=== PATIENT | male | born 1950 | race Caucasian/White ===

== ENCOUNTER 2017-08-18 18:40 | Inpatient (IN) ==
--- NOTE | 2017-08-18 19:05 | ED ---
HPI General Chief complaint: Syncope Stated complaint: Near Syncope/Evac Time Seen by Provider: 08/18/17 19:05 Related Data Home Medications Medication Instructions Recorded Confirmed amiodarone 100 mg PO MOWEFR 08/12/17 08/12/17 amiodarone 200 mg PO QTUTHSASU 08/12/17 08/12/17 atorvastatin 10 mg PO HS 08/12/17 08/12/17 carisoprodol 350 mg PO BID PRN 08/12/17 08/12/17 cholecalciferol (vitamin D3) 1,000 unit PO DAILY 08/12/17 08/12/17 [Vitamin D3] glipizide 10 mg PO HS 08/12/17 08/12/17 linagliptin [Tradjenta] 5 mg PO HS 08/12/17 08/12/17 metformin 1,000 mg PO BID 08/12/17 08/12/17 metoprolol succinate 25 mg PO DAILY 08/12/17 08/12/17 oxycodone-acetaminophen 1 tab PO TID PRN 08/12/17 08/12/17 vitamin B complex [B 1 tab PO DAILY 08/12/17 08/12/17 Complex-Vitamin B12] warfarin 2.5 mg PO DIRECTED 08/12/17 08/12/17 warfarin 5 mg PO WE 08/12/17 08/12/17 Allergies Allergy/AdvReac Type Severity Reaction Status Date / Time meperidine [From Demerol] Allergy Severe Nausea Verified 08/12/17 10:42 Sulfa (Sulfonamide Allergy Severe Nausea Verified 08/12/17 10:42 Antibiotics) PMFSH Social History Social History Recent Travel in [facility] within the Last 8 Weeks: No Recent Out of Country Travel within the Last 8 Weeks: No Course Initial Documented Vital Signs Pulse Rate 66 08/18/17 18:59 Respiratory Rate 18 08/18/17 18:59 Blood Pressure 148/74 H 08/18/17 18:59 Pulse Oximetry 96 08/18/17 18:59 Last Documented Vital Signs Pulse Rate 66 08/18/17 18:59 Respiratory Rate 18 08/18/17 18:59 Blood Pressure 148/74 H 08/18/17 18:59 Pulse Oximetry 96 08/18/17 18:59 Discharge Plan Physicians Team ED Provider: Taye Milton Rxs /Orders / Referrals /Forms Prescriptions: No Action carisoprodol 350 mg Tablet 350 mg PO BID PRN (Reason: Pain) RF: 0 atorvastatin 10 mg Tablet 10 mg PO HS RF: 0 amiodarone 200 mg Tablet 200 mg PO QTUTHSASU RF: 0 glipizide 10 mg Tablet 10 mg PO HS RF: 0 warfarin 2.5 mg Tablet 2.5 mg PO DIRECTED RF: 0 metformin 1,000 mg Tablet 1,000 mg PO BID RF: 0 warfarin 5 mg Tablet 5 mg PO WE RF: 0 vitamin B complex [B Complex-Vitamin B12] Tablet 1 tab PO DAILY RF: 0 metoprolol succinate 25 mg Tablet Extended Release 24 Hr 25 mg PO DAILY RF: 0 amiodarone 100 mg Tablet 100 mg PO MOWEFR RF: 0 cholecalciferol (vitamin D3) [Vitamin D3] 1,000 unit Tablet 1,000 unit PO DAILY RF: 0 linagliptin [Tradjenta] 5 mg Tablet 5 mg PO HS RF: 0 oxycodone-acetaminophen 10-325 mg Tablet 1 tab PO TID PRN (Reason: Pain) RF: 0 Status ED Status: With Doctor
--- NOTE | 2017-08-18 19:13 | ED ---
HPI General Chief complaint: Syncope Stated complaint: Near Syncope/Evac Time Seen by Provider: 08/18/17 19:05 History of Present Illness HPI narrative: Patient 67-year-old male presents emergency department after the syncopal episode, the patient states he took some Dulcolax suppositories and then started drinking his GoLYTELY at about noon today, his last bowel movement was after the Dulcolax and was fairly firm. He was sitting on the toilet not straining when suddenly he felt like he was going to pass out very diaphoretic, his in a panic called next-door neighbor who could not palpate a radial pulse on him despite him still talking, the 2 ladies then lowered the patient to the ground when they called paramedics they showed up and found him to be very hypotensive on scene. No chest pain no shortness of breath, no nausea no vomiting. The patient is prepping for colon surgery currently has a mass in his ascending colon. Related Data Home Medications Medication Instructions Recorded Confirmed amiodarone 100 mg PO MOWEFR 08/12/17 08/19/17 amiodarone 200 mg PO QTUTHSASU 08/12/17 08/19/17 atorvastatin 40 mg PO HS 08/12/17 08/19/17 cholecalciferol (vitamin D3) 1,000 unit PO DAILY 08/12/17 08/19/17 [Vitamin D3] glipizide 10 mg PO HS 08/12/17 08/19/17 linagliptin [Tradjenta] 5 mg PO HS 08/12/17 08/19/17 metformin 1,000 mg PO BID 08/12/17 08/19/17 metoprolol succinate 25 mg PO DAILY 08/12/17 08/19/17 oxycodone-acetaminophen 1 tab PO TID PRN 08/12/17 08/19/17 vitamin B complex [B 1 tab PO DAILY 08/12/17 08/19/17 Complex-Vitamin B12] warfarin 2.5 mg PO DIRECTED 08/12/17 08/19/17 warfarin 5 mg PO WE 08/12/17 08/19/17 Allergies Allergy/AdvReac Type Severity Reaction Status Date / Time meperidine [From Demerol] Allergy Severe Nausea Verified 08/12/17 10:42 Sulfa (Sulfonamide Allergy Severe Nausea Verified 08/12/17 10:42 Antibiotics) Review of Systems Except as stated in HPI: all other systems reviewed are negative PMFSH Social History Social History Substance History: No History of Abuse Second Hand Smoke Exposure: No Smoking Status: Never smoker How Often Do You Have a Drink Containing Alcohol: Never Recent Travel in [facility] within the Last 8 Weeks: No Recent Out of Country Travel within the Last 8 Weeks: No Exam Narrative Exam Narrative: GENERAL: Well-developed well-nourished, no obvious distress SKIN: Focused skin assessment warm/dry. HEAD: Atraumatic. Normocephalic. EYES: Pupils equal and round. No scleral icterus. No injection or drainage. ENT: No nasal bleeding or discharge. Mucous membranes pink and moist. NECK: Trachea midline. No JVD. CARDIOVASCULAR: Regular rate and rhythm. No murmur appreciated. 2+ bilateral pulses in all 4 extreme RESPIRATORY: No accessory muscle use. Clear to auscultation. Breath sounds equal bilaterally. GASTROINTESTINAL: Abdomen soft, non-tender, nondistended. Hepatic and splenic margins not palpable. MUSCULOSKELETAL: No obvious deformities. No clubbing. No cyanosis. No edema. NEUROLOGICAL: Awake and alert. Cranial nerves II through XII are grossly intact and nonfocal, 5 out of 5 strength in all 4 extremities, normal speech. PSYCHIATRIC: Appropriate mood and affect; insight and judgment normal. Course Hospital Course: Shortly after arrival the patient had an additional episode, he was sitting in a stretcher and had fairly sudden onset right lower quadrant abdominal pain, blood pressure dropped to 80/60 systolic, he was placed in Trendelenburg, normal saline was started. He appears very uncomfortable pale cool and diaphoretic currently. Illness and diaphoresis lasted for about 5 minutes, his blood pressure quickly returned to 140 systolic. He was given morphine and Phenergan as he had a bout of 300 cc of clear emesis output. Chief concerns are for obstruction and perforation, less likely is that the patient is having an aortic dissection or rupture. Will be taken emergently to the CAT scan, had creatinine a few days ago which was 1.03. Initial Documented Vital Signs Pulse Rate 66 08/18/17 18:59 Respiratory Rate 18 08/18/17 18:59 Blood Pressure 148/74 H 08/18/17 18:59 Pulse Oximetry 96 08/18/17 18:59 Last Documented Vital Signs Temperature 98.9 F 08/18/17 23:34 Pulse Rate 87 07/11/18 23:34 Respiratory Rate 18 08/18/17 23:34 Blood Pressure 168/79 H 08/18/17 23:34 Pulse Oximetry 98 08/18/17 20:21 Critical Care Time Critical Care Time: Yes Total Critical Care Time: 35 Attestation: Aggregate critical care time was 35 minutes. Time to perform other separately billable procedures was not included in the critical care time. My time did not include minutes spent treating any other patients simultaneously or on activities that did not directly contribute to the patient's treatment. The services I provided to this patient were to treat and/or prevent clinically significant deterioration that could result in: , disability, organ failure I provided critical care services requiring my management, as noted below: Chart data review, documentation time, medication orders and management, vital sign assessments/reviewing monitor data, ordering and reviewing lab tests, ordering and interpreting/reviewing x-rays and diagnostic studies, care of the patient and discussion of the patient with the admitting physicians. Medical Decision Making MDM Narrative Medical decision making narrative: Patient room to the emergency department as above did have a near syncopal episode and transient hypotension, was given a liter of fluids, morphine, Phenergan NG tube was inserted after he had large volume clear emesis. He is improved significantly here, is taken to CAT scan which does show concerns for large bowel obstruction, fair amount of stool in the descending colon, my concern remains for large bowel obstruction he still has not had a bowel movement since starting his prep today. Patient was discussed with Dr. Burgos who is on-call for Dr. Bassett, he would like to have an additional liter of fluid 2 L bolus and then started 100 cc/h, potassium repleted as well. Patient ultimately discussed with Dr. Conroy for admission and she is agreeable. We will place in the [facility] given the transient hypotension. Differential Diagnosis Differential Diagnosis: Vasovagal syncope, cardiogenic syncope, dehydration, electrolyte abnormality, GI bleeding, obstruction, aortic rupture, bowel rupture. Lab Data Result diagrams: 08/18/17 19:45 08/18/17 19:45 Lab Results 08/18/17 08/18/17 08/18/17 Range/Units 02:13 19:45 19:45 WBC 18.4 H (4.0-11.0) th/mm3 RBC 4.64 (4.50-5.90) mil/mm3 Hgb 14.2 (13.0-17.0) gm/dL Hct 40.9 (39.0-51.0) % MCV 88.2 (80.0-100.0) fL MCH 30.6 (27.0-34.0) pg MCHC 34.7 (32.0-36.0) % RDW 14.1 (11.6-17.2) % Plt Count 160 (150-450) th/mm3 MPV 8.7 (7.0-11.0) fL Neut % (Auto) 86.2 H (16.0-70.0) % Lymph % (Auto) 8.8 L (9.0-44.0) % [place] % (Auto) 4.6 (0.0-8.0) % Eos % (Auto) 0.1 (0.0-4.0) % Baso % (Auto) 0.3 (0.0-2.0) % Neut # (Auto) 15.8 H (1.8-7.7) th/mm3 Lymph # (Auto) 1.6 (1.0-4.8) th/mm3 [place] # (Auto) 0.9 (0.0-0.9) th/mm3 Eos # (Auto) 0.0 (0.0-0.4) th/mm3 Baso # (Auto) 0.1 (0.0-0.2) th/mm3 WBC Differential . Differential Comment Auto diff final Sodium 141 (136-145) meq/L Potassium 3.2 L (3.5-5.1) meq/L Chloride 104 (98-107) meq/L Carbon Dioxide 21.6 (21.0-32.0) meq/L Anion Gap 15 (5-15) meq/L BUN 16 (7-18) mg/dL Creatinine 1.21 (0.60-1.30) mg/dL Estimated GFR 59 L (>89) mL/min POC Glucose (68-110) mg/dl Random Glucose 203 H (74-106) mg/dL Calcium 9.3 (8.5-10.1) mg/dL Total Bilirubin 1.2 H (0.2-1.0) mg/dL AST 15 (15-37) U/L ALT 17 (12-78) U/L Alkaline Phosphatase 53 (45-117) U/L Troponin I Less than 0.02 L (0.02-0.05) ng/mL Total Protein 7.0 (6.4-8.2) g/dL Albumin 3.9 (3.4-5.0) g/dL Urine Color Yellow (Yellw/Straw) Urine Clarity Clear (Clear) Urine pH 5.0 (5.0-8.5) Ur Specific [place] 1.040 H (1.002-1.035) Urine Protein Negative (Neg-Trace) mg/dL Urine Glucose (UA) 50 (Negative) mg/dL Urine Ketones 20 (Negative) mg/dL Urine Occult Blood Negative (Negative) Urine Nitrate Negative (Negative) Urine Bilirubin Negative (Negative) Urine Urobilinogen Less than 2 (Less than 2) mg/dL Ur Leukocyte Esterase Negative (Negative) Urine WBC 1 (0-5) /hpf Urine Mucus Few H (Occasional) /lpf 08/18/17 Range/Units 23:31 WBC (4.0-11.0) th/mm3 RBC (4.50-5.90) mil/mm3 Hgb (13.0-17.0) gm/dL Hct (39.0-51.0) % MCV (80.0-100.0) fL MCH (27.0-34.0) pg MCHC (32.0-36.0) % RDW (11.6-17.2) % Plt Count (150-450) th/mm3 MPV (7.0-11.0) fL Neut % (Auto) (16.0-70.0) % Lymph % (Auto) (9.0-44.0) % [place] % (Auto) (0.0-8.0) % Eos % (Auto) (0.0-4.0) % Baso % (Auto) (0.0-2.0) % Neut # (Auto) (1.8-7.7) th/mm3 Lymph # (Auto) (1.0-4.8) th/mm3 [place] # (Auto) (0.0-0.9) th/mm3 Eos # (Auto) (0.0-0.4) th/mm3 Baso # (Auto) (0.0-0.2) th/mm3 WBC Differential Differential Comment Sodium (136-145) meq/L Potassium (3.5-5.1) meq/L Chloride (98-107) meq/L Carbon Dioxide (21.0-32.0) meq/L Anion Gap (5-15) meq/L BUN (7-18) mg/dL Creatinine (0.60-1.30) mg/dL Estimated GFR (>89) mL/min POC Glucose 212 H (68-110) mg/dl Random Glucose (74-106) mg/dL Calcium (8.5-10.1) mg/dL Total Bilirubin (0.2-1.0) mg/dL AST (15-37) U/L ALT (12-78) U/L Alkaline Phosphatase (45-117) U/L Troponin I (0.02-0.05) ng/mL Total Protein (6.4-8.2) g/dL Albumin (3.4-5.0) g/dL Urine Color (Yellw/Straw) Urine Clarity (Clear) Urine pH (5.0-8.5) Ur Specific [place] (1.002-1.035) Urine Protein (Neg-Trace) mg/dL Urine Glucose (UA) (Negative) mg/dL Urine Ketones (Negative) mg/dL Urine Occult Blood (Negative) Urine Nitrate (Negative) Urine Bilirubin (Negative) Urine Urobilinogen (Less than 2) mg/dL Ur Leukocyte Esterase (Negative) Urine WBC (0-5) /hpf Urine Mucus (Occasional) /lpf Imaging Data Radiologist's impression: ITS Impressions Thoracic Aorta CT 08/18/17 19:48 CONCLUSION: 1. Atherosclerotic dilatation seen throughout the arterial system. No aneurysm is seen. No dissection is seen. There are prominent calcifications of the coronary arteries. 2. Prominent fat extending to the right inguinal canal consistent with a hernia without bowel in this region. 3. Degenerative and postoperative change in the lumbar spine. Discharge Plan Discharge Disposition Patient Disposition: 30 Still Patient Discharge Details Diagnosis: Near syncope, Bowel obstruction, Increased nausea and vomiting, Acute hypotension Physicians Team ED Provider: Kulwinder Urena Primary Care Provider: Rian Alex Attending Provider: Cherrie Crawford Discharge Interventions Interventions: Vital Signs Last Done: 08/18/17 19:44 Status ED Status: Admitted Observation Patient
[2017-08-18] MEDS ORDERED: Morphine Inj 4 MG, Morphine Inj 2 MG IV.PUSH ONE ×2 (19:49)
[2017-08-18 20:21] LABS: Baso # (Auto) 0.1 th/mm3 (0.0-0.2); Baso % (Auto) 0.3 % (0.0-2.0); Eos % (Auto) 0.1 % (0.0-4.0); Hematocrit 40.9 % (39.0-51.0); Hemoglobin 14.2 gm/dL (13.0-17.0); Lymph # (Auto) 1.6 th/mm3 (1.0-4.8); Lymph % (Auto) 8.8 % (9.0-44.0); Mean Corpuscular HGB Conc 34.7 % (32.0-36.0); Mean Corpuscular Hemoglobin 30.6 pg (27.0-34.0); Mean Corpuscular Volume 88.2 fL (80.0-100.0); Mean Platelet Volume 8.7 fL (7.0-11.0); Mono # (Auto) 0.9 th/mm3 (0.0-0.9); Mono % (Auto) 4.6 % (0.0-8.0); Neut # (Auto) 15.8 th/mm3 (1.8-7.7); Neut % (Auto) 86.2 % (16.0-70.0); Platelet Count 160 th/mm3 (150-450); Red Blood Count 4.64 mil/mm3 (4.50-5.90); Red Cell Distribution Width 14.1 % (11.6-17.2); White Blood Count 18.4 th/mm3 (4.0-11.0)
[2017-08-18 20:37] LABS: Albumin 3.9 g/dL (3.4-5.0); Anion Gap 15 meq/L (5-15); Aspartate Aminotransferase 15 U/L (15-37); Blood Urea Nitrogen 16 mg/dL (7-18); Calcium 9.3 mg/dL (8.5-10.1); Carbon Dioxide 21.6 meq/L (21.0-32.0); Chloride 104 meq/L (98-107); Glomerular Filtration Rate 59 mL/min (>89); Glucose,Random 203 mg/dL (74-106); Potassium 3.2 meq/L (3.5-5.1); Sodium 141 meq/L (136-145)
[2017-08-18 20:38] LABS: Alanine Aminotransferase 17 U/L (12-78)
[2017-08-18 20:42] LABS: Alkaline Phosphatase 53 U/L (45-117)
--- NOTE | 2017-08-18 21:08 | CT ---
EXAM DATE: 08/18/2017 8:27 PM EDT AGE/SEX: 67 years / Male INDICATIONS: Diaphoretic pain CLINICAL DATA: This is the patient's initial encounter. Patient reports that signs and symptoms have been present for 1 day and indicates a pain score of 7/10. MEDICAL/SURGICAL HISTORY: Renal calculi. Hypertension. Cardiovascular disease. . Hernia repair ba ck surgery RADIATION DOSE: 9.91 CTDI (mGy) COMPARISON: No prior exams available for comparison. TECHNIQUE: Volumetric scanning was performed using a multi-row detector CT scanner during bolus infu damaso of 94 ml Omnipaque 350 (iohexol) nonionic water-soluble contrast as a single exam dose. The da ta was post processed with a variety of visualization algorithms including full volume maximum intens ity projection, multi-planar sliding thin slab reformation, curved planar reformation, and surface re ndering techniques. Using automated exposure control and adjustment of the mA and/or kV according to patient size, radiation dose was kept as low as reasonably achievable to obtain optimal diagnostic q uality images. DICOM format image data is available electronically for review and comparison. FINDINGS: Lungs: There is no consolidation or pneumothorax. No concerning pulmonary nodule is visualized. No pleural fluid is present. Mediastinum: No abnormally enlarged lymph nodes by CT criteria. No axillary or hilar abnormalities a re identified. There are prominent coronary artery calcifications. Abdomen: The liver and spleen are free of focal defects. The gallbladder and pancreas demonstrate no abnormality. The adrenal glands are normal. The kidneys demonstrate no evidence of solid renal mass or hydronephrosis. There is an NG tube in place. There is a prominent amount stool seen in the colon particularly in the sigmoid region. No free fluid or abdominal masses are identified. No para-aortic adenopathy is seen. There is degenerative and postoperative change in the lumbar spine. Pelvis: No evidence of free fluid or pelvic mass. No abnormally enlarged inguinal or retroperitoneal lymph nodes are present. The bladder is unremarkable. There is prominent fat extending into the righ t inguinal canal. Thoracic Aorta: The thoracic aortic root is normal with normal branching of the great vessels. Ther e is no evidence of aneurysm or dissection. Atherosclerotic calcifications are seen throughout the ar terial system. Coronary artery calcifications are seen. Abdominal Aorta: The aorta is normal in caliber without aneurysm or dissection. The renal arteries are patent bilaterally. The proximal celiac and superior mesenteric arteries are patent and normal i n diameter. Pelvic Vessels: The internal iliac and external iliac vessels are patent without aneurysm or stenosi s. CONCLUSION: 1. Atherosclerotic dilatation seen throughout the arterial system. No aneurysm is seen. No dissectio n is seen. There are prominent calcifications of the coronary arteries. 2. Prominent fat extending to the right inguinal canal consistent with a hernia without bowel in thi s region. 3. Degenerative and postoperative change in the lumbar spine. Electronically signed by: Carlos Lobato MD 08/18/2017 9:07 PM EDT
[2017-08-18] MEDS ORDERED: Sod Chloride 0.9% Inj 1,000 ML IV.SIG ONE (21:18)
[2017-08-18] MEDS: Potassium Chlor 20 mEq Premix 20 MEQ/100 ML PIGGYBACK IV.SIG SCH (22:49)
[2017-08-18] MEDS ORDERED: Morphine Inj 4 MG/ML Vial IV.PUSH PRN (22:52)
[2017-08-18] MEDS ORDERED: Temazepam 15 MG Capsule PO PRN (22:53)
[2017-08-18] MEDS ORDERED: Bisacodyl 10 MG Supp RECTAL PRN (22:53)
[2017-08-18] MEDS ORDERED: Dextrose 50% in Water 50 ML Vial IV.PUSH PRN (22:55)
[2017-08-18 23:01] LABS: Bilirubin,Urine Negative (Negative); Clarity,Urine Clear (Clear); Color,Urine Yellow (Yellw/Straw); Glucose,Urine (UA) 50 mg/dL (Negative); Leukocyte Esterase,Urine Negative (Negative); Mucus,Urine Few /lpf (Occasional); Nitrite,Urine Negative (Negative)
[2017-08-18] MEDS: Sodium Chloride 23.4% Inj 188 MEQ in Sod Chloride 0.9% Inj 1,000 ML IV.CONT SCH (23:22)
[2017-08-19] MEDS: Potassium Chlor 20 mEq Premix 20 MEQ/100 ML PIGGYBACK IV.SIG SCH ×2 (00:04→14:16)
[2017-08-19] MEDS: Sod Chloride 0.9% Inj 1,000 ML IV.CONT SCH (00:05)
--- NOTE | 2017-08-19 04:00 | P.HP ---
History of Present Illness Service: [facility] Primary Care Physician: Rian Alex MD Chief Complaint: Nausea/vomiting History of Present Illness: 67-year-old male with a past medical history significant for hypertension, hyperlipidemia and diabetes mellitus presents to the emergency department for the evaluation and abdominal distention/pain. The patient was prepping for colorectal surgery tomorrow and had taken Dulcolax suppositories and GoLYTELY. He reports being on the toilet when he suddenly felt as though he was going to pass out, became diaphoretic and slumped to the floor. EMS was called and the patient was transported to the emergency department. The patient reports his abdomen has been distended. He denies any chest pain or shortness of breath. No nausea/vomiting. No lateralizing signs/symptoms. No fevers/chills. Inpatient Certification: I certify that the inpatient services were ordered in accordance with Medicare regulations governing the order. This includes certification that hospital inpatient services are reasonable and necessary and in the case of services not specified as inpatient-only under 42 CFR 419.22(n), that they are appropriately provided as inpatient services in accordance to with the 2-midnight benchmark under 43 CFR 412.3(e) Review of Systems All other systems reviewed negative except as stated in HPI PMFSH - History History Provided By: Patient, Cloth Bolt Bander / EMT - Medical History Medical History: Medical History (Last Reviewed 08/18/17 @ 19:33 by Marissa Sorensen RN) Abnormal colonoscopy Amputation of left thumb Atrial fibrillation Back pain Colon polyps Dental bridge present Diabetes High cholesterol History of cardioversion History of kidney stones Hypertension Skin cancer Wears glasses - Surgical History Surgical History: Surgical History (Last Reviewed 08/18/17 @ 19:33 by Marissa Sorensen RN) History of hernia repair History of lithotripsy Previous back surgery - Tobacco History Second Hand Smoke Exposure: No Smoking Status: Never smoker - Alcohol History How Often Do You Have a Drink Containing Alcohol: Never - Substance Use History Substance History: No History of Abuse - Travel History Recent Travel in the [place] Within the Last 8 Weeks: No Recent Travel Out of the Country Within the Last 8 Weeks: No - Immunization History Tetanus Immunization: Never Vaccinated Hx Influenza Vaccine This Season: Yes Medications and Allergies Active Medications: Active Medications Al Hydroxide/Mg Hydroxide (Milk Of Magnadams Liq) 30 ml PO Q12H PRN PRN Reason: Mild Constipation Bisacodyl (Dulcolax Supp) 10 mg RECTAL DAILY PRN PRN Reason: SEVERE CONSITIPATION Dextrose (D50w Vial) 50 ml IV.PUSH UNSCH PRN PRN Reason: PER HYPOGLYCEMIA PROTOCOL Glucagon (Glucagon Inj) 1 mg OTHER PRN PRN PRN Reason: for Hypoglycemia Protocol Sodium Chloride 188 meq/ (Sodium Chloride) 1,047 mls @ 100 mls/hr IV.CONT .[id number] [facility] Last Admin: 08/18/17 23:22 Dose: 100 mls/hr Sodium Chloride (Ns Inj) 1,000 mls @ 100 mls/hr IV.CONT .Q10H ROSA M Last Admin: 08/19/17 00:05 Dose: 100 mls/hr Insulin Human Regular (Novolin R Supplemental Scale) 0 units SQ ACHS AND 3AM ROSA M; Protocol Lactulose (Lactulose Liq) 30 ml PO DAILY PRN PRN Reason: SEVERE CONSITIPATION Morphine Sulfate (Morphine Inj) 4 mg IV.PUSH Q4H PRN PRN Reason: pain 6-10 Ondansetron HCl (Zofran Inj) 4 mg IV.PUSH Q6H PRN PRN Reason: NAUSEA OR VOMITING Senna/Docusate Sodium (Elisha-Colace) 1 tab PO BID ROSA M Sennosides (Senokot) 17.2 mg PO Q12H PRN PRN Reason: Moderate Constipation Temazepam (Restoril) 15 mg PO HS PRN PRN Reason: INSOMNIA Allergies Allergy/AdvReac Type Severity Reaction Status Date / Time meperidine [From Demerol] Allergy Severe Nausea Verified 08/12/17 10:42 Sulfa (Sulfonamide Allergy Severe Nausea Verified 08/12/17 10:42 Antibiotics) Home Medications Medication Instructions Recorded Confirmed Type amiodarone 100 mg PO MOWEFR 08/12/17 08/19/17 History amiodarone 200 mg PO [id number] 08/12/17 08/19/17 History atorvastatin 40 mg PO HS 08/12/17 08/19/17 History cholecalciferol (vitamin D3) 1,000 unit PO DAILY 08/12/17 08/19/17 History [Vitamin D3] glipizide 10 mg PO HS 08/12/17 08/19/17 History linagliptin [Tradjenta] 5 mg PO HS 08/12/17 08/19/17 History metformin 1,000 mg PO BID 08/12/17 08/19/17 History metoprolol succinate 25 mg PO DAILY 08/12/17 08/19/17 History oxycodone-acetaminophen 1 tab PO TID PRN 08/12/17 08/19/17 History vitamin B complex [B 1 tab PO DAILY 08/12/17 08/19/17 History Complex-Vitamin B12] warfarin 2.5 mg PO DIRECTED 08/12/17 08/19/17 History warfarin 5 mg PO WE 08/12/17 08/19/17 History Exam Vital signs: Vital Signs 08/18/17 18:59 08/18/17 19:35 08/18/17 19:44 Temperature 97.3 F L Pulse Rate 66 75 87 Respiratory Rate 18 16 16 Blood Pressure 148/74 H 157/70 H 142/78 H Pulse Oximetry 96 100 96 08/18/17 20:21 08/18/17 23:34 Temperature 98.9 F Pulse Rate 87 Respiratory Rate 18 Blood Pressure 168/79 H Pulse Oximetry 98 Intake & Output 08/18/17 08/18/17 08/19/17 06:59 18:59 06:59 Intake Total 100 / 100 Output Total 300 / 300 Balance -200 / -200 Weight 98.43 kg Intake: IV 100 / 100 KCl 20 mEq Premix Inj 20 meq In 100 / 100 100 ml @ 50 mls/hr IV.SIG Q2H ROSA M Rx#:[id number] Output: Emesis 300 / 300 Other: Date of Last Bowel Movement 08/18/17 # Bowel Movements 2 # Emeses 1 Narrative: Gen.: No acute distress Head: Normocephalic. Atraumatic. EENT: Pupils equal round and reactive to light. Nose without drainage. Airway intact. Throat without injection. NG tube in place. Cardiovascular: Regular rate and rhythm. No murmurs, rubs or gallops. Respiratory: Lungs clear to auscultation bilaterally. No wheezes or rhonchi. Abdomen: Soft, nontender, positive distention. No peritoneal signs. Musculoskeletal: No gross deformities. No edema. Skin: No obvious rashes or erythema. Neuro: Sensory and motor grossly intact. Cranial nerves II through XII grossly intact. Psych: Appropriate mood and affect Results - Labs CBC & Chem 7: 08/18/17 19:45 08/18/17 19:45 Labs: Laboratory Results - last 24 hr 08/18/17 08/18/17 08/18/17 02:13 19:45 19:45 WBC 18.4 H RBC 4.64 Hgb 14.2 Hct 40.9 MCV 88.2 MCH 30.6 MCHC 34.7 RDW 14.1 Plt Count 160 MPV 8.7 Neut % (Auto) 86.2 H Lymph % (Auto) 8.8 L Burnet % (Auto) 4.6 Eos % (Auto) 0.1 Baso % (Auto) 0.3 Neut # (Auto) 15.8 H Lymph # (Auto) 1.6 Burnet # (Auto) 0.9 Eos # (Auto) 0.0 Baso # (Auto) 0.1 WBC Differential . Differential Comment Auto diff final Sodium 141 Potassium 3.2 L Chloride 104 Carbon Dioxide 21.6 Anion Gap 15 BUN 16 Creatinine 1.21 Estimated GFR 59 L POC Glucose Random Glucose 203 H Calcium 9.3 Total Bilirubin 1.2 H AST 15 ALT 17 Alkaline Phosphatase 53 Troponin I Less than 0.02 L Total Protein 7.0 Albumin 3.9 Urine Color Yellow Urine Clarity Clear Urine pH 5.0 Ur Specific Zalma 1.040 H Urine Protein Negative Urine Glucose (UA) 50 Urine Ketones 20 Urine Occult Blood Negative Urine Nitrate Negative Urine Bilirubin Negative Urine Urobilinogen Less than 2 Ur Leukocyte Esterase Negative Urine WBC 1 Urine Mucus Few H 08/18/17 23:31 WBC RBC Hgb Hct MCV MCH MCHC RDW Plt Count MPV Neut % (Auto) Lymph % (Auto) Burnet % (Auto) Eos % (Auto) Baso % (Auto) Neut # (Auto) Lymph # (Auto) Burnet # (Auto) Eos # (Auto) Baso # (Auto) WBC Differential Differential Comment Sodium Potassium Chloride Carbon Dioxide Anion Gap BUN Creatinine Estimated GFR POC Glucose 212 H Random Glucose Calcium Total Bilirubin AST ALT Alkaline Phosphatase Troponin I Total Protein Albumin Urine Color Urine Clarity Urine pH Ur Specific Zalma Urine Protein Urine Glucose (UA) Urine Ketones Urine Occult Blood Urine Nitrate Urine Bilirubin Urine Urobilinogen Ur Leukocyte Esterase Urine WBC Urine Mucus - Imaging Impressions Thoracic Aorta CT 08/18/17 19:48 CONCLUSION: 1. Atherosclerotic dilatation seen throughout the arterial system. No aneurysm is seen. No dissection is seen. There are prominent calcifications of the coronary arteries. 2. Prominent fat extending to the right inguinal canal consistent with a hernia without bowel in this region. 3. Degenerative and postoperative change in the lumbar spine. Caprini VTE Risk Assessment Caprini VTE Risk Assessment: Moderate/High Risk (score >= 2) Caprini Risk Assessment Model: Point Value = 1 Point Value = 2 Point Value = 3 Point Value = 5 Age 41-60 Minor surgery BMI > 25 kg/m2 Swollen legs Varicose veins or History of unexplained or recurrent spontaneous Oral contraceptives or hormone replacement Sepsis (< 1 month) Serious lung disease, including pneumonia (< 1 month) Abnormal pulmonary function Acute myocardial infarction Congestive heart failure (< 1 month) History of inflammatory bowel disease Medical patient at bed rest Age 61-74 Arthroscopic surgery Major open surgery (> 45 min) Laparoscopic surgery (> 45 min) Malignancy Confined to bed (> 72 hours) Immobilizing plaster cast Central venous access Age >= 75 History of VTE Family history of VTE Factor V Leiden Prothrombin [id number] Lupus anticoagulant Anticardiolipin antibodies Elevated serum homocysteine Heparin-induced thrombocytopenia Other congenital or acquired thrombophilia Stroke (< 1 month) Elective arthroplasty Hip, pelvis, or leg fracture Acute spinal cord injury (< 1 month) Prophylaxis Regimen: Total Risk Factor Score Risk Level Prophylaxis Regimen 0-1 Low Early ambulation 2 Moderate Order ONE of the following: *Sequential Compression Device (SCD) *Heparin 5000 units SQ BID 3-4 Higher Order ONE of the following medications: *Heparin 5000 units SQ TID *Enoxaparin/Lovenox 40 mg SQ daily (WT < 150 kg, CrCl > 30 mL/min) *Enoxaparin/Lovenox 30 mg SQ daily (WT < 150 kg, CrCl > 10-29 mL/min) *Enoxaparin/Lovenox 30 mg SQ BID (WT < 150 kg, CrCl > 30 mL/min) AND/OR *Sequential Compression Device (SCD) 5 or more Highest Order ONE of the following medications: *Heparin 5000 units SQ TID (Preferred with Epidurals) *Enoxaparin/Lovenox 40 mg SQ daily (WT < 150 kg, CrCl > 30 mL/min) *Enoxaparin/Lovenox 30 mg SQ daily (WT < 150 kg, CrCl > 10-29 mL/min) *Enoxaparin/Lovenox 30 mg SQ BID (WT < 150 kg, CrCl > 30 mL/min) AND *Sequential Compression Device (SCD) Assessment and Plan - Plan Assessment/plan: 1. ? Bowel obstruction CTA of the abdomen prominent amount of stool in the colon No radiographic evidence of transition point documented NG tube placed by ED physician N.p.o. Colorectal surgery consulted, appreciate assistance 2. Syncope Likely secondary to transient hypotension May have vasovagal component Continue to monitor 3. Diabetes mellitus Sliding-scale insulin Monitor blood glucose 4. Hypertension/hyperlipidemia Continue home medications FEN N.p.o. Electrolytes: Status post repletion of potassium, monitor BMP NS at 100 cc/hour Holding pharmacologic anticoagulation for possible operative procedure
[2017-08-19] MEDS ORDERED: PEG 3350/E-Lyte Soln 4000 ML Bottle NG/OG SCH (09:00)
[2017-08-19] MEDS ORDERED: Senna/Docusate Sodium 8.6/50 MG Tablet PO SCH (09:00)
--- NOTE | 2017-08-19 09:04 | MH ---
cc: Carlos Bassett MD DATE OF ADMISSION: 08/19/2017 CHIEF COMPLAINT: Colon polyp, cecum. HISTORY OF PRESENT ILLNESS: This patient is known to me. He was scheduled for surgery this afternoon for an ascending colectomy for a partially removed, apparently benign polyp, referred to me from his grinder operator. In the course of his bowel prep yesterday, he had 3 Dulcolax tablets at noon. It was erroneously reported in the medical record that he had Dulcolax suppositories; that is not the case. He started his Colyte prep at 3:00 p.m. and by the evening, he was starting to have bowel motions but he also had severe abdominal cramps when he was pushing on the toilet and became lightheaded and called emergency medical services and they transported him to the Emergency Department. He had a full workup in the emergency room with multiple testing including CT angiogram of his whole aorta to rule out aortic dissection. In the course of that angiogram, he was seen to have a lot of stool in the distal colon and fluid in his colon consistent with his bowel prep. A nasogastric tube was placed when the patient had some nausea and an episode of emesis. At this time, the patient is comfortable, although he is complaining of all of his aches and pains, including his chronic back pain. He is very annoyed at being in the hospital in the emergency department. He is lying on a bed mercedes with diarrhea. Clearly, he does not have a bowel obstruction. Past medical history, family history, social history, and review of systems is basically negative except for the fact he has chronic pain. He also has diabetes mellitus. He has been getting IV fluid through the night. All of his labs have been basically normal, including his troponins. I talked to the patient extensively about having surgery versus cancelling the surgery and since he is in the middle of his bowel prep and he is cleaning out, he wants to complete his bowel prep and proceed with surgery today. I see no reason to not do his ascending colectomy, although I told him since this is a semi-elective procedure ,that he is welcome to reschedule at some other point. PHYSICAL EXAMINATION: GENERAL: Well-developed, well-nourished male with nasogastric tube present. SKIN: Warm and dry. HEENT: Extraocular muscles intact. NECK: Supple. CHEST: Clear. HEART: S1, S2 is heard. No murmurs or gallops. ABDOMEN: Soft, nontender. His bladder is mildly distended. RECTAL: Shows really just liquid stool running from his rectum. He is lying on a bed mercedes. I removed that for him. EXTREMITIES: Range of motion within normal limits. NEUROLOGIC: Grossly normal. IMPRESSION: 1. Vasovagal reaction to his bowel prep. The nursing staff tells me that they tried to get him up this morning, although he denies that and says that he became faint once again. 2. Colon polyp, cecum. PLAN: Ascending colectomy today. We will complete his bowel prep by 11:00 a.m. and get him a bedside commode or a bed in the hospital where he can adequately finish his prep. I have gone over all the risks, benefits and alternatives of surgery with him previously and did so again today. We will prep him through his nasogastric tube and then removed his nasogastric tube after the prep is completed. I went over all this with the nursing staff and they understand the plan of action. MD KANIKA Maciel/LAUREN , 08:44 AM , 09:03 AM
[2017-08-19 09:38] LABS: Baso % (Auto) 0.3 % (0.0-2.0); Eos % (Auto) 0.1 % (0.0-4.0); Hematocrit 37.3 % (39.0-51.0); Lymph # (Auto) 1.1 th/mm3 (1.0-4.8); Mean Corpuscular HGB Conc 34.8 % (32.0-36.0); Mean Corpuscular Hemoglobin 30.9 pg (27.0-34.0); Mean Corpuscular Volume 88.7 fL (80.0-100.0); Mono # (Auto) 0.5 th/mm3 (0.0-0.9); Mono % (Auto) 6.3 % (0.0-8.0); Neut % (Auto) 80.3 % (16.0-70.0); Platelet Count 105 th/mm3 (150-450); Red Cell Distribution Width 14.2 % (11.6-17.2); White Blood Count 8.7 th/mm3 (4.0-11.0)
[2017-08-19 10:15] LABS: Calcium 8.4 mg/dL (8.5-10.1); Carbon Dioxide 23.4 meq/L (21.0-32.0); Magnesium 1.4 mg/dL (1.5-2.5); Potassium 3.2 meq/L (3.5-5.1)
[2017-08-19] MEDS ORDERED: Potassium Chlor 20 mEq Premix 20 MEQ/100 ML PIGGYBACK IV.SIG SCH (10:27)
[2017-08-19] MEDS: Amiodarone 200 MG Tablet PO SCH (10:40)
[2017-08-19] MEDS: Mag Sulf 1 gm/100 ml Premix 100 ML IV.SIG SCH (10:52)
[2017-08-19] MEDS ORDERED: Lidocaine PF 1% Inj 5 ML Syringe INFILTRATN ONE (12:00)
[2017-08-19] MEDS ORDERED: Glycopyrrolate Inj 1 MG/5 ML Syringe IV.PUSH ONE (12:00)
[2017-08-19] MEDS ORDERED: Phenylephrine/NS 1000 MCG/10ML Syringe IV.PUSH ONE (12:00)
--- NOTE | 2017-08-19 13:14 | ECG ---
Date Performed: 08/18/2017 Time Performed: 19:43:40 PTAGE: 67 years EKG: Sinus rhythm WITH OCCASIONAL SUPRAVENTRICULAR PREMATURE COMPLEXES BORDERLINE ECG Diffuse nonspecific ST T wave ch anges Clinical correlation is recommended NO PREVIOUS TRACING DOCTOR: Maxim Sanchez Interpretating Date/Time 08/19/2017 13:12:14
[2017-08-19] MEDS: Sodium Chloride 23.4% Inj 188 MEQ in Sod Chloride 0.9% Inj 1,000 ML IV.CONT SCH (14:16)
[2017-08-19] MEDS ORDERED: Dextrose 5% in Water Inj 1,000 ML IV.SIG SCH (15:15)
[2017-08-19] MEDS ORDERED: Metoprolol Tartrate 25 MG Tablet PO SCH (15:15)
[2017-08-19] MEDS ORDERED: Chlorhexidine Gluconate 2% 1 Pack (2 Cloths) TOPICAL SCH (15:15)
[2017-08-19] MEDS ORDERED: ceFAZolin 2 GM Premix Inj 0 GM/0 ML PIGGYBACK IV.SIG ONE (15:43)
[2017-08-19] MEDS ORDERED: Sodium Chlor 0.9% Inj 500 ML IV.SIG SCH (16:00)
[2017-08-19] MEDS ORDERED: fentaNYL Citrate Inj 100 MCG/2 ML Ampul ONE (17:54)
[2017-08-19] MEDS ORDERED: Potassium Chlor 40 mEq Premix 40 MEQ/100 ML PIGGYBACK IV.SIG PRN (17:55)
[2017-08-19] MEDS ORDERED: Potassium Chlor 20 mEq Premix 20 MEQ/100 ML PIGGYBACK IV.SIG PRN (17:55)
[2017-08-19] MEDS ORDERED: Zolpidem Tartrate 5 MG Tablet PO PRN (18:04)
[2017-08-19] MEDS ORDERED: Ketorolac Inj 30 MG/ML (IVP) Vial IV.PUSH PRN (18:04)
[2017-08-19] MEDS ORDERED: Dextrose 50% in Water 50 ML Vial IV.PUSH PRN (18:10)
[2017-08-19] MEDS ORDERED: Naloxone Inj 0.4 MG/ML Vial IV.PUSH PRN (18:15)
[2017-08-19] MEDS ORDERED: *morphine SULFATE 10 MG/ML PERIprocedure ONLY ONE (18:58)
[2017-08-19] MEDS: KCL 20 mEq/D5W/LR Inj 1,000 ML IV.CONT SCH ×2 (19:05→22:56)
[2017-08-19] MEDS: Morphine Inj 30 MG/30 ML PCA.VIAL PCA PRN (19:06)
[2017-08-19 19:10] LABS: Baso % (Auto) 0.3 % (0.0-2.0); Eos % (Auto) 0.1 % (0.0-4.0); Hemoglobin 13.1 gm/dL (13.0-17.0); Lymph # (Auto) 1.1 th/mm3 (1.0-4.8); Lymph % (Auto) 9.8 % (9.0-44.0); Mean Corpuscular HGB Conc 34.5 % (32.0-36.0); Mean Corpuscular Volume 89.9 fL (80.0-100.0); Mean Platelet Volume 8.8 fL (7.0-11.0); Mono # (Auto) 0.5 th/mm3 (0.0-0.9); Mono % (Auto) 4.5 % (0.0-8.0); Neut % (Auto) 85.3 % (16.0-70.0); Platelet Count 107 th/mm3 (150-450); Red Blood Count 4.23 mil/mm3 (4.50-5.90); White Blood Count 11.7 th/mm3 (4.0-11.0)
[2017-08-19 19:19] LABS: Carbon Dioxide 23.9 meq/L (21.0-32.0); Potassium 3.7 meq/L (3.5-5.1)
[2017-08-19] MEDS: ceFAZolin 2 GM Premix Inj 2 GM/50 ML PIGGYBACK IV.SIG SCH (20:49)
[2017-08-19] MEDS: Insulin NovoLIN Regular Correctional Sugar Inj SQ SCH (21:35)
[2017-08-20] MEDS: Insulin NovoLIN Regular Correctional Sugar Inj SQ SCH ×9 (03:16→21:19)
[2017-08-20] MEDS: Potassium Chlor 20 mEq Premix 20 MEQ/100 ML PIGGYBACK IV.SIG SCH (03:17)
[2017-08-20] MEDS: Sodium Chloride 23.4% Inj 188 MEQ in Sod Chloride 0.9% Inj 1,000 ML IV.CONT SCH ×3 (03:20→15:24)
[2017-08-20] MEDS: Sod Chloride 0.9% Inj 1,000 ML IV.CONT SCH (03:27)
[2017-08-20] MEDS: Mag Sulf 1 gm/100 ml Premix 100 ML IV.SIG SCH (03:28)
[2017-08-20] MEDS: ceFAZolin 2 GM Premix Inj 2 GM/50 ML PIGGYBACK IV.SIG SCH ×2 (04:00→11:36)
[2017-08-20] MEDS: KCL 20 mEq/D5W/LR Inj 1,000 ML IV.CONT SCH ×2 (04:24→17:53)
[2017-08-20 05:39] LABS: Baso % (Auto) 0.1 % (0.0-2.0); Eos % (Auto) 0.1 % (0.0-4.0); Hematocrit 33.6 % (39.0-51.0); Hemoglobin 11.6 gm/dL (13.0-17.0); Lymph % (Auto) 12.3 % (9.0-44.0); Mean Corpuscular HGB Conc 34.7 % (32.0-36.0); Mean Corpuscular Hemoglobin 31.6 pg (27.0-34.0); Mean Corpuscular Volume 91.3 fL (80.0-100.0); Mean Platelet Volume 9.1 fL (7.0-11.0); Mono # (Auto) 0.5 th/mm3 (0.0-0.9); Mono % (Auto) 6.3 % (0.0-8.0); Neut # (Auto) 6.7 th/mm3 (1.8-7.7); Neut % (Auto) 81.2 % (16.0-70.0); Platelet Count 90 th/mm3 (150-450); Red Blood Count 3.68 mil/mm3 (4.50-5.90); Red Cell Distribution Width 14.3 % (11.6-17.2); White Blood Count 8.3 th/mm3 (4.0-11.0)
[2017-08-20 05:42] LABS: Calcium 7.4 mg/dL (8.5-10.1); Carbon Dioxide 25.3 meq/L (21.0-32.0); Potassium 3.5 meq/L (3.5-5.1)
[2017-08-20 06:01] LABS: Total Protein 5.3 g/dL (6.4-8.2)
--- NOTE | 2017-08-20 08:21 | MP ---
cc: Carlos Bassett MD, George Hippogonoker, Visvalogan, Virnu DATE OF OPERATION: 08/19/2017 PREOPERATIVE DIAGNOSIS: Cecal polyp. POSTOPERATIVE DIAGNOSIS: Cecal polyp. PROCEDURE PERFORMED: Ascending colectomy. ANESTHESIA: General endotracheal. SURGEON: Carlos Bassett MD INTENSIVE CARE UNIT NURSE: Dr. Burgos ESTIMATED BLOOD LOSS: 50 mL OPERATING TIME: 55 minutes. OPERATIVE FINDINGS: This patient was found on colonoscopy to have a large sessile polyp in the approximately 4 cm. Approximately 1.5 cm of that polyp was removed. It was found to be benign, but because of its central umbilication, it was referred to [facility] for colectomy. He was scheduled for elective surgery, but came into the hospital last evening with a syncopal episode and was monitored overnight. A nasogastric tube was placed and then his remainder of his GoLytely was given by nasogastric tube and the nasogastric tube was removed, fully completing his bowel prep. Prior to that, discussion with the patient and his family, he decided that he wanted to proceed with the surgery even though he had this syncopal episode and has chronic pain in his back. Otherwise, he is in fairly stable condition. He has been off of his Coumadin for about 5 days and is otherwise stable. At surgery, an ascending colectomy was done with an ileocolic anastomosis in the mid portion of the transverse colon. The specimen was opened after removal and the polyp was located in the cecum across from the ileocecal valve, approximately 3 cm in diameter, somewhat umbilicated in the middle. It was palpably normal, it will be sent for permanent pathology. OPERATIVE TECHNIQUE: The patient was placed on the table in the supine position. After adequate general endotracheal anesthesia, the abdomen was prepped and draped in the usual manner. Transverse supraumbilical skin incision was made on the right side of the abdomen. The incision was carried down through subcutaneous tissue and the rectus muscles and the peritoneal cavity was entered with the above-mentioned findings. The cecum was mobilized along its peritoneal reflection as was the ascending colon to the hepatic flexure. Next, the lesser sac was entered above the transverse colon posterior to the stomach and the remainder of the hepatic flexure was mobilized. The mid portion of the transverse colon was identified and the middle colic vessels were preserved. The mesentery was opened just to the right side of the middle colic vessels and the marginal vessel was clamped, cut and ligated and the transverse colon was divided with an Ethicon RADHA 55 stapling device. Next, the ileocolic vessels were isolated and the terminal ileum was chosen for point of division and the terminal ileum was cleared and the small bowel mesentery was clamped, cut and ligated and then the terminal ileum was divided between Zacheyr clamps. Next, the ileocolic vessels were doubly clamped, cut and doubly ligated at their origin and the right colic vessel was also clamped, cut and ligated and the specimen was removed from the table. Dr. Burgos opened the specimen and the polyp was identified in the cecum as mentioned above. Next, the anastomosis was carried out along the antimesenteric borders of the small bowel and the colon with an Ethicon RADHA 55 stapling device and the colotomy was closed with a TX 60 blue staple height stapling device. Next, the mesentery of the small bowel and the colon was closed with a running 3-0 Vicryl suture in a simple running manner. Hemostasis was maintained throughout with electrocautery and ligature. The bowels were replaced in the abdominal cavity in an sign maintenance manner once hemostasis was identified. Next, the abdominal cavity was closed in layers using double stranded #1 PDS for the posterior rectus sheath and the rectus muscle layer was irrigated thoroughly with saline solution, and the anterior rectus sheath was closed with a double-stranded #1 PDS. Subcutaneous tissue was irrigated thoroughly with a liter of saline solution and the skin was closed with running 3-0 Vicryl subcuticular suture and a dressing was applied. Sponge, needle and instrument counts were reported as correct. The estimated blood loss was 50 mL. Operating time was 55 minutes. The patient tolerated the procedure well and left the operating room in good condition. MD KANIKA Maciel/CORTEZ , 06:33 PM , 07:00 PM
[2017-08-20 08:22] LABS: Platelet Morphology Normal (Normal)
[2017-08-20] MEDS: Amiodarone 200 MG Tablet PO SCH (09:05)
[2017-08-20] MEDS: Pantoprazole Inj 40 MG Vial IV.PUSH SCH (09:05)
[2017-08-20] MEDS: Morphine Inj 30 MG/30 ML PCA.VIAL PCA PRN (11:23)
--- NOTE | 2017-08-20 14:51 | P.PNIM ---
Subjective Interval history: 67-year-old male with a past medical history significant for hypertension, hyperlipidemia and diabetes mellitus presents to the emergency department for the evaluation and abdominal distention/pain. The patient was prepping for colorectal surgery tomorrow and had taken Dulcolax suppositories and GoLYTELY. He reports being on the toilet when he suddenly felt as though he was going to pass out, became diaphoretic and slumped to the floor. EMS was called and the patient was transported to the emergency department. The patient reports his abdomen has been distended. He denies any chest pain or shortness of breath. No nausea/vomiting. No lateralizing signs/symptoms. No fevers/chills. 713 had surgery yesterday with ascending colectomy is a dm is not eating much can restart po meds once eating more of a diet AM LABS PT AND OT DW RN AND PT AND FAMILY Physical Exam Vital signs: Vital Signs 08/19/17 17:45 08/19/17 17:47 08/19/17 18:00 Temperature 97.6 F Pulse Rate 83 80 Respiratory Rate 14 14 Blood Pressure 143/67 H 160/66 H Pulse Oximetry 98 94 L 08/19/17 18:15 08/19/17 18:30 08/19/17 18:45 Temperature Pulse Rate 79 78 76 Respiratory Rate 15 15 15 Blood Pressure 158/70 H 151/72 H 152/68 H Pulse Oximetry 98 99 99 08/19/17 19:00 08/19/17 19:15 08/19/17 19:30 Temperature Pulse Rate 75 75 78 Respiratory Rate 15 16 15 Blood Pressure 152/69 H 146/61 H 159/70 H Pulse Oximetry 97 97 98 08/19/17 19:45 08/19/17 20:00 08/19/17 21:00 Temperature 97.5 F L Pulse Rate 79 81 80 Respiratory Rate 15 15 16 Blood Pressure 149/70 H 148/69 H 167/74 H Pulse Oximetry 99 99 100 08/19/17 23:30 08/20/17 04:00 08/20/17 08:00 Temperature 97.9 F 98.4 F 100.4 F H Pulse Rate 76 78 90 Respiratory Rate 14 16 18 Blood Pressure 129/63 130/76 155/76 H Pulse Oximetry 100 100 92 L 08/20/17 08:35 08/20/17 09:00 08/20/17 10:00 Temperature 98.2 F Pulse Rate 52 L 80 76 Respiratory Rate 16 Blood Pressure 113/66 Pulse Oximetry 98 08/20/17 10:22 08/20/17 11:00 08/20/17 12:00 Temperature 98.5 F Pulse Rate 82 80 Respiratory Rate 16 18 Blood Pressure 106/63 Pulse Oximetry 96 08/20/17 13:00 08/20/17 14:00 Temperature Pulse Rate 82 84 Respiratory Rate Blood Pressure Pulse Oximetry Intake & Output 08/19/17 08/20/17 08/20/17 18:59 06:59 18:59 Intake Total 2800 / 2800 4764 / 4764 2550 / 2550 Output Total 50 / 50 950 / 950 Balance 2750 / 2750 3814 / 3814 2550 / 2550 Weight 98.4 kg Intake: IV 200 / 200 3450 / 3450 2550 / 2550 NS Inj 1,000 ML @ 100 mls/hr IV 100 / 100 .CONT .Q10H ROSA M Rx#:[id number] Sodium Chloride 23.4% Inj 188 1000 / 1000 1000 / 1000 MEQ In NS Inj 1,000 ML @ 100 mls/hr IV.CONT .[id number] ROSA M Rx# :[id number] LR 1000 mL Inj 1,000 ML @ 30 1000 / 1000 mls/hr IV.SIG .Q24H ROSA M Rx#: [id number] Magnesium Sulfate 1 gm/D5W 100 1000 / 1000 ml Premix 100 ML @ 100 mls/hr IV.SIG Q1H ROSA M Rx#:[id number] KCl 20 mEq Premix Inj 20 meq In 100 / 100 100 ml @ 50 mls/hr IV.SIG Q2H ROSA M Rx#:[id number] Ancef 2 GM Premix Inj 2 gm In 50 / 50 150 / 150 50 ml @ 100 mls/hr IV.SIG Q8H ROSA M Rx#:[id number] Ancef Inj 1,000 MG In NS Inj 100 / 100 100 ML @ 200 mls/hr IV.SIG FAIRING MAN ROSA M Rx#:[id number] Flagyl 500 MG Inj 100 ML @ 0 100 / 100 200 / 200 500 / 500 mls/hr IV.SIG FAIRING MAN ROSA M Rx#: [id number] Anesthesia Amount 2600 / 2600 Other 1314 / 1314 Output: Estimated Blood Loss 50 / 50 Urine Amount (Catheter) 950 / 950 Indwelling Urethral Catheter 950 / 950 Other: Date of Last Bowel Movement 08/20/17 Narrative: Gen.: No acute distress AWAKE ALERT AND ORIENTED X3 Head: Normocephalic. Atraumatic. EENT: Pupils equal round and reactive to light. Nose without drainage. Airway intact. Throat without injection. NG tube in place. EOMI Cardiovascular: Regular rate and rhythm. No murmurs, rubs or gallops. S1, S2 NO S3 OR S4 Respiratory: Lungs clear to auscultation bilaterally. No wheezes or rhonchi. Abdomen: Soft, nontender, positive distention. No peritoneal signs. HYPOACTIVE Musculoskeletal: No gross deformities. No edema. NO CLUBBING OR CYANOSIS Skin: No obvious rashes or erythema. Neuro: Sensory and motor grossly intact. Cranial nerves II through XII grossly intact. Psych: Appropriate mood and affect INSIGHT AND JUDGEMENT ARE GOOD - Urinary Catheter Management Indwelling Urethral Catheter Cath placed during this visit: no Reason for continuing: Other continuation reason Results - Labs CBC & Chem 7: 08/20/17 03:31 08/20/17 03:31 Laboratory Results - last 24 hr 08/19/17 08/19/17 08/19/17 18:29 18:52 18:52 WBC 11.7 H RBC 4.23 L Hgb 13.1 Hct 38.0 L MCV 89.9 MCH 31.0 MCHC 34.5 RDW 14.0 Plt Count 107 L MPV 8.8 Prelim Diff (Auto) Neut % (Auto) 85.3 H Lymph % (Auto) 9.8 [place] % (Auto) 4.5 Eos % (Auto) 0.1 Baso % (Auto) 0.3 Neut # (Auto) 10.0 H Lymph # (Auto) 1.1 [place] # (Auto) 0.5 Eos # (Auto) 0.0 Baso # (Auto) 0.0 WBC Differential . Diff Scan Differential Comment Auto diff final Platelet Estimate Platelet Morphology Sodium 141 Potassium 3.7 Chloride 104 Carbon Dioxide 23.9 Anion Gap 13 BUN 9 Creatinine 0.93 Estimated GFR 81 L POC Glucose 200 H Random Glucose 203 H Calcium 8.0 L Prot Corrected Calcium Total Protein 08/19/17 08/20/17 08/20/17 21:01 03:31 03:31 WBC 8.3 RBC 3.68 L Hgb 11.6 L Hct 33.6 L MCV 91.3 MCH 31.6 MCHC 34.7 RDW 14.3 Plt Count 90 L MPV 9.1 Prelim Diff (Auto) Slide review pending Neut % (Auto) 81.2 H Lymph % (Auto) 12.3 [place] % (Auto) 6.3 Eos % (Auto) 0.1 Baso % (Auto) 0.1 Neut # (Auto) 6.7 Lymph # (Auto) 1.0 [place] # (Auto) 0.5 Eos # (Auto) 0.0 Baso # (Auto) 0.0 WBC Differential . Diff Scan Auto diff confirmed Differential Comment . Platelet Estimate Low L Platelet Morphology Normal Sodium 141 Potassium 3.5 Chloride 105 Carbon Dioxide 25.3 Anion Gap 11 BUN 7 Creatinine 0.88 Estimated GFR 86 L POC Glucose 271 H Random Glucose 239 H Calcium 7.4 L* Prot Corrected Calcium 8.4 L Total Protein 5.3 L D 08/20/17 08/20/17 08/20/17 03:58 09:00 11:34 WBC RBC Hgb Hct MCV MCH MCHC RDW Plt Count MPV Prelim Diff (Auto) Neut % (Auto) Lymph % (Auto) [place] % (Auto) Eos % (Auto) Baso % (Auto) Neut # (Auto) Lymph # (Auto) [place] # (Auto) Eos # (Auto) Baso # (Auto) WBC Differential Diff Scan Differential Comment Platelet Estimate Platelet Morphology Sodium Potassium Chloride Carbon Dioxide Anion Gap BUN Creatinine Estimated GFR POC Glucose 242 H 242 H 320 H Random Glucose Calcium Prot Corrected Calcium Total Protein - Imaging ITS Impressions Thoracic Aorta CT 08/18/17 19:48 CONCLUSION: 1. Atherosclerotic dilatation seen throughout the arterial system. No aneurysm is seen. No dissection is seen. There are prominent calcifications of the coronary arteries. 2. Prominent fat extending to the right inguinal canal consistent with a hernia without bowel in this region. 3. Degenerative and postoperative change in the lumbar spine. - Procedures 08/19/2017 PREOPERATIVE DIAGNOSIS: Cecal polyp. POSTOPERATIVE DIAGNOSIS: Cecal polyp. PROCEDURE PERFORMED: Ascending colectomy. ANESTHESIA: General endotracheal. Assessment and Plan - Plan . ? Bowel obstruction CTA of the abdomen prominent amount of stool in the colon No radiographic evidence of transition point documented NG tube placed by ED physician N.p.o. Colorectal surgery consulted, appreciate assistance SP ASCENDING COLECTOMY ON 7-12 POD #1 2. Syncope Likely secondary to transient hypotension May have vasovagal component Continue to monitor 3. Diabetes mellitus Sliding-scale insulin Monitor blood glucose RESTART PO MEDS ONCE DIET MORE ADVANCED 4. Hypertension/hyperlipidemia Continue home medications HYPOKALEMIA WILL REPLACE AM LABS Electrolytes: Status post repletion of potassium, monitor BMP Code Status: FULL CODE Discussed Condition With: RN AND PT AND FAMILY Discharge Planning: PENDING SURGICAL CLEARANCE
--- NOTE | 2017-08-20 16:21 | P.PNCS ---
Subjective Interval history: No N or V. No BMs. Tolerating CLD Objective Vital Signs/Intake & Output: Vital Signs 08/19/17 17:45 08/19/17 17:47 08/19/17 18:00 Temperature 97.6 F Pulse Rate 83 80 Respiratory Rate 14 14 Blood Pressure 143/67 H 160/66 H Pulse Oximetry 98 94 L 08/19/17 18:15 08/19/17 18:30 08/19/17 18:45 Temperature Pulse Rate 79 78 76 Respiratory Rate 15 15 15 Blood Pressure 158/70 H 151/72 H 152/68 H Pulse Oximetry 98 99 99 08/19/17 19:00 08/19/17 19:15 08/19/17 19:30 Temperature Pulse Rate 75 75 78 Respiratory Rate 15 16 15 Blood Pressure 152/69 H 146/61 H 159/70 H Pulse Oximetry 97 97 98 08/19/17 19:45 08/19/17 20:00 08/19/17 21:00 Temperature 97.5 F L Pulse Rate 79 81 80 Respiratory Rate 15 15 16 Blood Pressure 149/70 H 148/69 H 167/74 H Pulse Oximetry 99 99 100 08/19/17 23:30 08/20/17 04:00 08/20/17 08:00 Temperature 97.9 F 98.4 F 100.4 F H Pulse Rate 76 78 90 Respiratory Rate 14 16 18 Blood Pressure 129/63 130/76 155/76 H Pulse Oximetry 100 100 92 L 08/20/17 08:35 08/20/17 09:00 08/20/17 10:00 Temperature 98.2 F Pulse Rate 52 L 80 76 Respiratory Rate 16 Blood Pressure 113/66 Pulse Oximetry 98 08/20/17 10:22 08/20/17 11:00 08/20/17 12:00 Temperature 98.5 F Pulse Rate 82 80 Respiratory Rate 16 18 Blood Pressure 106/63 Pulse Oximetry 96 08/20/17 13:00 08/20/17 14:00 08/20/17 15:00 Temperature Pulse Rate 82 84 77 Respiratory Rate Blood Pressure Pulse Oximetry 08/20/17 16:00 Temperature 98.8 F Pulse Rate 75 Respiratory Rate 18 Blood Pressure 113/64 Pulse Oximetry 96 Intake & Output 08/19/17 08/20/17 08/20/17 18:59 06:59 18:59 Intake Total 2800 / 2800 4764 / 4764 2550 / 2550 Output Total 50 / 50 950 / 950 Balance 2750 / 2750 3814 / 3814 2550 / 2550 Weight 98.4 kg Intake: IV 200 / 200 3450 / 3450 2550 / 2550 NS Inj 1,000 ML @ 100 mls/hr IV 100 / 100 .CONT .Q10H ROSA M Rx#:[id number] Sodium Chloride 23.4% Inj 188 1000 / 1000 1000 / 1000 MEQ In NS Inj 1,000 ML @ 100 mls/hr IV.CONT .[id number] ROSA M Rx# :[id number] LR 1000 mL Inj 1,000 ML @ 30 1000 / 1000 mls/hr IV.SIG .Q24H ROSA M Rx#: [id number] Magnesium Sulfate 1 gm/D5W 100 1000 / 1000 ml Premix 100 ML @ 100 mls/hr IV.SIG Q1H ROSA M Rx#:[id number] KCl 20 mEq Premix Inj 20 meq In 100 / 100 100 ml @ 50 mls/hr IV.SIG Q2H ROSA M Rx#:[id number] Ancef 2 GM Premix Inj 2 gm In 50 / 50 150 / 150 50 ml @ 100 mls/hr IV.SIG Q8H ROSA M Rx#:[id number] Ancef Inj 1,000 MG In NS Inj 100 / 100 100 ML @ 200 mls/hr IV.SIG JBOSS DEVELOPER ROSA M Rx#:[id number] Flagyl 500 MG Inj 100 ML @ 0 100 / 100 200 / 200 500 / 500 mls/hr IV.SIG J[employer] DEVELOPER ROSA M Rx#: [id number] Anesthesia Amount 2600 / 2600 Other 1314 / 1314 Output: Estimated Blood Loss 50 / 50 Urine Amount (Catheter) 950 / 950 Indwelling Urethral Catheter 950 / 950 Other: Date of Last Bowel Movement 08/20/17 Result Diagrams: 08/20/17 03:31 08/20/17 03:31 Laboratory Results: Laboratory Results - last 24 hr 08/19/17 08/19/17 08/19/17 18:29 18:52 18:52 WBC 11.7 H RBC 4.23 L Hgb 13.1 Hct 38.0 L MCV 89.9 MCH 31.0 MCHC 34.5 RDW 14.0 Plt Count 107 L MPV 8.8 Prelim Diff (Auto) Neut % (Auto) 85.3 H Lymph % (Auto) 9.8 [place] % (Auto) 4.5 Eos % (Auto) 0.1 Baso % (Auto) 0.3 Neut # (Auto) 10.0 H Lymph # (Auto) 1.1 [place] # (Auto) 0.5 Eos # (Auto) 0.0 Baso # (Auto) 0.0 WBC Differential . Diff Scan Differential Comment Auto diff final Platelet Estimate Platelet Morphology Sodium 141 Potassium 3.7 Chloride 104 Carbon Dioxide 23.9 Anion Gap 13 BUN 9 Creatinine 0.93 Estimated GFR 81 L POC Glucose 200 H Random Glucose 203 H Calcium 8.0 L Prot Corrected Calcium Total Protein 08/19/17 08/20/17 08/20/17 21:01 03:31 03:31 WBC 8.3 RBC 3.68 L Hgb 11.6 L Hct 33.6 L MCV 91.3 MCH 31.6 MCHC 34.7 RDW 14.3 Plt Count 90 L MPV 9.1 Prelim Diff (Auto) Slide review pending Neut % (Auto) 81.2 H Lymph % (Auto) 12.3 [place] % (Auto) 6.3 Eos % (Auto) 0.1 Baso % (Auto) 0.1 Neut # (Auto) 6.7 Lymph # (Auto) 1.0 [place] # (Auto) 0.5 Eos # (Auto) 0.0 Baso # (Auto) 0.0 WBC Differential . Diff Scan Auto diff confirmed Differential Comment . Platelet Estimate Low L Platelet Morphology Normal Sodium 141 Potassium 3.5 Chloride 105 Carbon Dioxide 25.3 Anion Gap 11 BUN 7 Creatinine 0.88 Estimated GFR 86 L POC Glucose 271 H Random Glucose 239 H Calcium 7.4 L* Prot Corrected Calcium 8.4 L Total Protein 5.3 L D 08/20/17 08/20/17 08/20/17 03:58 09:00 11:34 WBC RBC Hgb Hct MCV MCH MCHC RDW Plt Count MPV Prelim Diff (Auto) Neut % (Auto) Lymph % (Auto) [place] % (Auto) Eos % (Auto) Baso % (Auto) Neut # (Auto) Lymph # (Auto) [place] # (Auto) Eos # (Auto) Baso # (Auto) WBC Differential Diff Scan Differential Comment Platelet Estimate Platelet Morphology Sodium Potassium Chloride Carbon Dioxide Anion Gap BUN Creatinine Estimated GFR POC Glucose 242 H 242 H 320 H Random Glucose Calcium Prot Corrected Calcium Total Protein Medications: Active Medications Alvimopan (Entereg) 12 mg PO BID [facility] Stop: 08/27/17 09:01 Amiodarone HCl (Cordarone) 100 mg PO [id number] [facility] Last Admin: 08/20/17 09:05 Dose: 100 mg Amiodarone HCl (Cordarone) 200 mg PO [id number]@0900 [facility] Last Admin: 08/19/17 10:40 Dose: Not Given Atorvastatin Calcium (Lipitor) 40 mg PO HS [facility] Last Admin: 08/20/17 03:21 Dose: Not Given Chlorhexidine Gluconate (Chlorhexidine 2% Cloth) 3 pack TOPICAL JBOSS DEVELOPER [facility] Stop: 08/22/17 15:15 Last Admin: 08/19/17 15:00 Dose: 3 pack Clonidine HCl (Catapres) 0.1 mg PO Q6H PRN PRN Reason: HYPERTENSION Dextrose (D50w Vial) 50 ml IV.PUSH UNSCH PRN PRN Reason: PER HYPOGLYCEMIA PROTOCOL Enalaprilat (Vasotec Inj) 1.25 mg IV.PUSH Q4H PRN PRN Reason: SBP > 160 mmHg Furosemide (Lasix Inj) 20 mg IV.PUSH Q12H [facility] Last Admin: 08/20/17 09:03 Dose: 20 mg Glucagon (Glucagon Inj) 1 mg OTHER PRN PRN PRN Reason: for Hypoglycemia Protocol Heparin Sodium (Porcine) (Heparin Inj) 5,000 units SQ Q12H [facility] Sodium Chloride 188 meq/ (Sodium Chloride) 1,047 mls @ 100 mls/hr IV.CONT .[id number] [facility] Last Admin: 08/20/17 15:24 Dose: Not Given Cefazolin Sodium 1,000 mg/ (Sodium Chloride) 100 mls @ 200 mls/hr IV.SIG JBOSS DEVELOPER [facility] Stop: 08/22/17 15:59 Last Infusion: 08/19/17 17:09 Dose: Infused Metronidazole/Sodium Chloride (Flagyl 500 Mg Inj) 100 mls @ 0 mls/hr IV.SIG JBOSS DEVELOPER [facility] Stop: 08/23/17 15:59 Last Infusion: 08/20/17 14:10 Dose: Infused Lactated Ringer's (Lr 1000 Ml Inj) 1,000 mls @ 30 mls/hr IV.SIG .Q24H [facility] Stop: 08/22/17 15:15 Last Admin: 08/20/17 14:33 Dose: Not Given Sodium Chloride (Ns Inj) 500 mls @ 30 mls/hr IV.SIG .Q10H ROSA M Stop: 08/22/17 15:15 Potassium Cl/Dextrose/Lact Ringer's (D5w/Lr + Kcl 20 Meq Inj) 1,000 mls @ 100 mls/hr IV.CONT .Q10H [facility]; Protocol Last Admin: 08/20/17 04:24 Dose: 175 mls/hr Potassium Chloride (Kcl 20 Meq Premix Inj) 20 meq in 100 mls @ 50 mls/hr IV.SIG UNSCH PRN PRN Reason: for K+ level 3.0-3.5 Potassium Chloride (Kcl 40 Meq Premix Inj) 40 meq in 100 mls @ 25 mls/hr IV.SIG UNSCH PRN PRN Reason: for K= level < 3.0 Morphine Sulfate (Morphine Inj) 30 mg in 30 mls @ 0 mls/hr FIBROUS PLASTERER UNSCH PRN PRN Reason: per FIBROUS PLASTERER parameters Last Admin: 08/20/17 11:23 Dose: 0 mls/hr Insulin Human Regular (Novolin R Supplemental Scale) 0 units SQ ACHS AND 3AM [facility]; Protocol Last Admin: 08/20/17 11:36 Dose: 10 units Ketorolac Tromethamine (Toradol Inj) 15 mg IV.PUSH Q6H PRN PRN Reason: BREAKTHROUGH PAIN Stop: 08/22/17 18:03 Last Admin: 08/19/17 20:52 Dose: 15 mg Metoclopramide HCl (Reglan Inj) 10 mg IV.PUSH Q6HR [facility]; Protocol Last Admin: 08/20/17 11:35 Dose: 10 mg Metoprolol Succinate (Toprol Xl) 25 mg PO DAILY [facility] Last Admin: 08/20/17 09:03 Dose: 25 mg Metoprolol Tartrate (Lopressor) 25 mg PO JBOSS DEVELOPER [facility] Stop: 08/22/17 15:15 Miscellaneous (Pill Splitter) 1 each OTHER UNSCH [facility] Miscellaneous Information (Mis Nursing Information) 1 each OTHER UNSCH PRN PRN Reason: SEE LABEL COMMENTS Stop: 08/20/17 17:44 Naloxone HCl (Narcan Inj) 0.4 mg IV.PUSH PRN PRN PRN Reason: Resp rate < 10 Ondansetron HCl (Zofran Inj) 4 mg IV.PUSH Q6H PRN PRN Reason: NAUSEA OR VOMITING Oxycodone/Acetaminophen (Percocet 5/325 Mg) 1 tab PO Q4H PRN PRN Reason: PAIN SCALE 1 TO 5 Oxycodone/Acetaminophen (Percocet 5/325 Mg) 2 tab PO Q4H PRN PRN Reason: PAIN SCALE 6 TO 10 Last Admin: 08/20/17 13:33 Dose: 2 tab Pantoprazole Sodium (Protonix Inj) 40 mg IV.PUSH DAILY [facility] Last Admin: 08/20/17 09:05 Dose: 40 mg Povidone Iodine (Betadine 5% Antisepsis Kit) 1 applicatio EACH NARE JBOSS DEVELOPER [facility] Stop: 08/22/17 15:15 Sodium Chloride (Ns Flush) 2 ml IV.FLUSH BID [facility] Last Admin: 08/20/17 09:04 Dose: 2 ml Sodium Chloride (Ns Flush) 2 ml IV.FLUSH PRN PRN PRN Reason: FLUSH AFTER USING IV ACCESS Zolpidem Tartrate (Ambien) 5 mg PO HS PRN PRN Reason: INSOMNIA Objective Remarks: Vs-s Abd: flat,soft,dressing dry Assessment and Plan - Plan Stable POD #1. Transfer to [address] [place] [address]
[2017-08-20] MEDS: Heparin - SQ 10,000 UNITS/ML Vial SQ SCH (21:19)
[2017-08-21] MEDS: KCL 20 mEq/D5W/LR Inj 1,000 ML IV.CONT SCH ×5 (00:29→12:31)
[2017-08-21] MEDS: Acetaminophen 325 MG Tablet PO PRN ×2 (01:45→17:52)
[2017-08-21] MEDS: Insulin NovoLIN Regular Correctional Sugar Inj SQ SCH ×5 (02:45→22:47)
[2017-08-21] MEDS: Sodium Chloride 23.4% Inj 188 MEQ in Sod Chloride 0.9% Inj 1,000 ML IV.CONT SCH (05:22)
[2017-08-21 06:20] LABS: Baso % (Auto) 0.2 % (0.0-2.0); Eos % (Auto) 0.2 % (0.0-4.0); Hematocrit 29.9 % (39.0-51.0); Hemoglobin 10.3 gm/dL (13.0-17.0); Lymph % (Auto) 14.9 % (9.0-44.0); Mean Corpuscular HGB Conc 34.6 % (32.0-36.0); Mean Corpuscular Hemoglobin 31.2 pg (27.0-34.0); Mean Platelet Volume 8.9 fL (7.0-11.0); Mono # (Auto) 0.4 th/mm3 (0.0-0.9); Neut # (Auto) 5.5 th/mm3 (1.8-7.7); Neut % (Auto) 78.7 % (16.0-70.0); Platelet Count 81 th/mm3 (150-450); Red Blood Count 3.32 mil/mm3 (4.50-5.90); Red Cell Distribution Width 14.3 % (11.6-17.2)
[2017-08-21 06:57] LABS: Alanine Aminotransferase 12 U/L (12-78); Albumin 2.5 g/dL (3.4-5.0); Anion Gap 9 meq/L (5-15); Aspartate Aminotransferase 18 U/L (15-37); Blood Urea Nitrogen 6 mg/dL (7-18); Calcium 7.7 mg/dL (8.5-10.1); Carbon Dioxide 28.9 meq/L (21.0-32.0); Chloride 102 meq/L (98-107); Cholesterol 103 mg/dL (120-200); Glomerular Filtration Rate 89 mL/min (>89); Glucose,Random 219 mg/dL (74-106); Magnesium 1.6 mg/dL (1.5-2.5); Potassium 3.2 meq/L (3.5-5.1); Sodium 140 meq/L (136-145); Triglycerides 52 mg/dL (42-150)
[2017-08-21 07:20] LABS: Alkaline Phosphatase 36 U/L (45-117); Chol/HDL Ratio 1.82 Ratio; Free T4 (Free Thyroxine) 1.71 ng/dL (0.76-1.46); HDL Cholesterol 56.3 mg/dL (40.0-60.0); LDL Cholesterol,Calculated 36 mg/dL (0-99); Phosphorus 1.5 mg/dL (2.5-4.9); Thyroid Stimulating Hormone 0.967 uIU/mL (0.358-3.740); Total Protein 5.1 g/dL (6.4-8.2)
--- NOTE | 2017-08-21 08:58 | P.PN ---
Subjective Interval history: Syncope and status post ascending colectomy. No recurrence of syncope. + BM Physical Exam Vital signs: Vital Signs 08/20/17 09:00 08/20/17 10:00 08/20/17 10:22 Temperature Pulse Rate 80 76 Respiratory Rate 16 Blood Pressure Pulse Oximetry 08/20/17 11:00 08/20/17 12:00 08/20/17 13:00 Temperature 98.5 F Pulse Rate 82 80 82 Respiratory Rate 18 Blood Pressure 106/63 Pulse Oximetry 96 08/20/17 14:00 08/20/17 15:00 08/20/17 16:00 Temperature 98.8 F Pulse Rate 84 77 75 Respiratory Rate 18 Blood Pressure 113/64 Pulse Oximetry 96 08/20/17 17:05 08/20/17 18:00 08/20/17 19:00 Temperature Pulse Rate 76 86 77 Respiratory Rate Blood Pressure Pulse Oximetry 08/20/17 20:00 08/20/17 21:00 08/20/17 22:00 Temperature 98.9 F Pulse Rate 80 89 80 Respiratory Rate 14 Blood Pressure 162/88 H Pulse Oximetry 92 L 08/20/17 23:43 08/21/17 02:00 08/21/17 04:00 Temperature 100.6 F H 97.8 F 97.9 F Pulse Rate 88 85 75 Respiratory Rate 14 16 17 Blood Pressure 144/66 H 145/67 H 138/63 Pulse Oximetry 94 L 97 08/21/17 08:00 Temperature Pulse Rate 73 Respiratory Rate 16 Blood Pressure 137/67 Pulse Oximetry 93 L Intake & Output 08/20/17 08/21/17 08/21/17 18:59 06:59 18:59 Intake Total 2550 / 2550 500 / 500 Output Total 950 / 950 300 / 300 Balance 1600 / 1600 200 / 200 Weight 98.4 kg Intake: IV 2550 / 2550 Sodium Chloride 23.4% Inj 188 1000 / 1000 MEQ In NS Inj 1,000 ML @ 100 mls/hr IV.CONT .[id number] ROSA M Rx# :[id number] Ancef 2 GM Premix Inj 2 gm In 150 / 150 50 ml @ 100 mls/hr IV.SIG Q8H ROSA M Rx#:[id number] Flagyl 500 MG Inj 100 ML @ 0 500 / 500 mls/hr IV.SIG [employer] C[employer] MANAGER ROSA M Rx#: [id number] Oral 500 / 500 Output: Urine Amount (Catheter) 950 / 950 300 / 300 Indwelling Urethral Catheter 950 / 950 300 / 300 Other: Date of Last Bowel Movement 08/20/17 08/20/17 # Bowel Movements 1 Narrative: Gen.: No acute distress Cardiovascular: Regular rate and rhythm. No murmurs, rubs or gallops. S1, S2 no S3 or S4 Respiratory: Lungs clear to auscultation bilaterally. No wheezes or rhonchi. Abdomen: Soft, positive distention. No peritoneal signs. Musculoskeletal: No gross deformities. No edema. Skin: No obvious rashes or erythema. Neuro: Sensory and motor grossly intact. Cranial nerves II through XII grossly intact. - Urinary Catheter Management Indwelling Urethral Catheter Cath placed during this visit: no Reason for continuing: Other continuation reason Results - Labs CBC & Chem 7: 08/21/17 05:11 08/21/17 05:11 Laboratory Results - last 24 hr 08/20/17 08/20/17 08/20/17 09:00 11:34 17:00 WBC RBC Hgb Hct MCV MCH MCHC RDW Plt Count MPV Prelim Diff (Auto) Neut % (Auto) Lymph % (Auto) [place] % (Auto) Eos % (Auto) Baso % (Auto) Neut # (Auto) Lymph # (Auto) [place] # (Auto) Eos # (Auto) Baso # (Auto) Differential Comment Sodium Potassium Chloride Carbon Dioxide Anion Gap BUN Creatinine Estimated GFR POC Glucose 242 H 320 H 229 H Random Glucose Calcium Phosphorus Magnesium Total Bilirubin AST ALT Alkaline Phosphatase Total Protein Albumin Triglycerides Cholesterol LDL Cholesterol, Calc HDL Cholesterol Cholesterol/HDL Ratio TSH Free T4 08/20/17 08/21/17 08/21/17 20:29 02:35 05:11 WBC 7.0 RBC 3.32 L Hgb 10.3 L Hct 29.9 L MCV 90.0 MCH 31.2 MCHC 34.6 RDW 14.3 Plt Count 81 L MPV 8.9 Prelim Diff (Auto) Slide review pending Neut % (Auto) 78.7 H Lymph % (Auto) 14.9 [place] % (Auto) 6.0 Eos % (Auto) 0.2 Baso % (Auto) 0.2 Neut # (Auto) 5.5 Lymph # (Auto) 1.0 [place] # (Auto) 0.4 Eos # (Auto) 0.0 Baso # (Auto) 0.0 Differential Comment . Sodium Potassium Chloride Carbon Dioxide Anion Gap BUN Creatinine Estimated GFR POC Glucose 187 H 220 H Random Glucose Calcium Phosphorus Magnesium Total Bilirubin AST ALT Alkaline Phosphatase Total Protein Albumin Triglycerides Cholesterol LDL Cholesterol, Calc HDL Cholesterol Cholesterol/HDL Ratio TSH Free T4 08/21/17 08/21/17 05:11 07:59 WBC RBC Hgb Hct MCV MCH MCHC RDW Plt Count MPV Prelim Diff (Auto) Neut % (Auto) Lymph % (Auto) [place] % (Auto) Eos % (Auto) Baso % (Auto) Neut # (Auto) Lymph # (Auto) [place] # (Auto) Eos # (Auto) Baso # (Auto) Differential Comment Sodium 140 Potassium 3.2 L Chloride 102 Carbon Dioxide 28.9 Anion Gap 9 BUN 6 L Creatinine 0.85 Estimated GFR 89 POC Glucose 259 H Random Glucose 219 H Calcium 7.7 L Phosphorus 1.5 L Magnesium 1.6 Total Bilirubin 1.2 H AST 18 ALT 12 Alkaline Phosphatase 36 L Total Protein 5.1 L Albumin 2.5 L Triglycerides 52 Cholesterol 103 L LDL Cholesterol, Calc 36 HDL Cholesterol 56.3 Cholesterol/HDL Ratio 1.82 TSH 0.967 Free T4 1.71 H - Procedures Ascending colectomy. Assessment and Plan - Assessment (1) Near syncope Code(s): R55 - Syncope and collapse Status: Acute - Plan 1. Status post ascending colectomy secondary to cecal polyp August 19. Postop mgt per CRS. Increase activity. PT eval. Dc GLOBAL PRODUCT MANAGER 2. Syncope Likely secondary to transient hypotension May have vasovagal component Continue to monitor 3. Diabetes mellitus. Hyperglycemia switch to no sugar liquid diet Sliding-scale insulin Monitor blood glucose Restart p.o. meds once tolerating diet 4. Hypertension/hyperlipidemia Continue home medications 5. Hypokalemia and hypophosphatemia. We will replace potassium and phosphorus 6. A. fib. Continue amiodarone and restart Coumadin when anemia and thrombocytopenia stabilized and when cleared by colorectal surgery. Monitor 7. Anemia and thrombocytopenia likely from acute blood loss and dilution. Will monitor DVT proph with SQ heparin Discharge Planning: HHC vs rehab
[2017-08-21] MEDS: Heparin - SQ 10,000 UNITS/ML Vial SQ SCH ×2 (09:17→21:03)
[2017-08-21] MEDS: Pantoprazole Inj 40 MG Vial IV.PUSH SCH (09:19)
[2017-08-21 09:23] LABS: Platelet Morphology Normal (Normal)
--- NOTE | 2017-08-21 10:39 | P.PNCS ---
Subjective Interval history: No N or V. PT and say he's depressed. Got him up to [place] to have BM anf flatus. Objective Vital Signs/Intake & Output: Vital Signs 08/20/17 11:00 08/20/17 12:00 08/20/17 13:00 Temperature 98.5 F Pulse Rate 82 80 82 Respiratory Rate 18 Blood Pressure 106/63 Pulse Oximetry 96 08/20/17 14:00 08/20/17 15:00 08/20/17 16:00 Temperature 98.8 F Pulse Rate 84 77 75 Respiratory Rate 18 Blood Pressure 113/64 Pulse Oximetry 96 08/20/17 17:05 08/20/17 18:00 08/20/17 19:00 Temperature Pulse Rate 76 86 77 Respiratory Rate Blood Pressure Pulse Oximetry 08/20/17 20:00 08/20/17 21:00 08/20/17 22:00 Temperature 98.9 F Pulse Rate 80 89 80 Respiratory Rate 14 Blood Pressure 162/88 H Pulse Oximetry 92 L 08/20/17 23:43 08/21/17 02:00 08/21/17 04:00 Temperature 100.6 F H 97.8 F 97.9 F Pulse Rate 88 85 75 Respiratory Rate 14 16 17 Blood Pressure 144/66 H 145/67 H 138/63 Pulse Oximetry 94 L 97 08/21/17 08:00 Temperature Pulse Rate 73 Respiratory Rate 16 Blood Pressure 137/67 Pulse Oximetry 93 L Intake & Output 08/20/17 08/21/17 08/21/17 18:59 06:59 18:59 Intake Total 2550 / 2550 500 / 500 Output Total 950 / 950 300 / 300 Balance 1600 / 1600 200 / 200 Weight 98.4 kg Intake: IV 2550 / 2550 Sodium Chloride 23.4% Inj 188 1000 / 1000 MEQ In NS Inj 1,000 ML @ 100 mls/hr IV.CONT .[id number] [facility] M Rx# :[id number] Ancef 2 GM Premix Inj 2 gm In 150 / 150 50 ml @ 100 mls/hr IV.SIG Q8H [facility] M Rx#:[id number] Flagyl 500 MG Inj 100 ML @ 0 500 / 500 mls/hr IV.SIG COMMUNITY LEADER [facility] M Rx#: [id number] Oral 500 / 500 Output: Urine Amount (Catheter) 950 / 950 300 / 300 Indwelling Urethral Catheter 950 / 950 300 / 300 Other: Date of Last Bowel Movement 08/20/17 08/20/17 # Bowel Movements 1 Result Diagrams: 08/21/17 05:11 08/21/17 05:11 Laboratory Results: Laboratory Results - last 24 hr 08/20/17 08/20/17 08/20/17 11:34 17:00 20:29 WBC RBC Hgb Hct MCV MCH MCHC RDW Plt Count MPV Prelim Diff (Auto) Neut % (Auto) Lymph % (Auto) [place] % (Auto) Eos % (Auto) Baso % (Auto) Neut # (Auto) Lymph # (Auto) [place] # (Auto) Eos # (Auto) Baso # (Auto) WBC Differential Diff Scan Differential Comment Platelet Estimate Platelet Morphology Sodium Potassium Chloride Carbon Dioxide Anion Gap BUN Creatinine Estimated GFR POC Glucose 320 H 229 H 187 H Random Glucose Calcium Phosphorus Magnesium Total Bilirubin AST ALT Alkaline Phosphatase Total Protein Albumin Triglycerides Cholesterol LDL Cholesterol, Calc HDL Cholesterol Cholesterol/HDL Ratio TSH Free T4 08/21/17 08/21/17 08/21/17 02:35 05:11 05:11 WBC 7.0 RBC 3.32 L Hgb 10.3 L Hct 29.9 L MCV 90.0 MCH 31.2 MCHC 34.6 RDW 14.3 Plt Count 81 L MPV 8.9 Prelim Diff (Auto) Slide review pending Neut % (Auto) 78.7 H Lymph % (Auto) 14.9 [place] % (Auto) 6.0 Eos % (Auto) 0.2 Baso % (Auto) 0.2 Neut # (Auto) 5.5 Lymph # (Auto) 1.0 [place] # (Auto) 0.4 Eos # (Auto) 0.0 Baso # (Auto) 0.0 WBC Differential . Diff Scan Auto diff confirmed Differential Comment . Platelet Estimate Low L Platelet Morphology Normal Sodium 140 Potassium 3.2 L Chloride 102 Carbon Dioxide 28.9 Anion Gap 9 BUN 6 L Creatinine 0.85 Estimated GFR 89 POC Glucose 220 H Random Glucose 219 H Calcium 7.7 L Phosphorus 1.5 L Magnesium 1.6 Total Bilirubin 1.2 H AST 18 ALT 12 Alkaline Phosphatase 36 L Total Protein 5.1 L Albumin 2.5 L Triglycerides 52 Cholesterol 103 L LDL Cholesterol, Calc 36 HDL Cholesterol 56.3 Cholesterol/HDL Ratio 1.82 TSH 0.967 Free T4 1.71 H 08/21/17 07:59 WBC RBC Hgb Hct MCV MCH MCHC RDW Plt Count MPV Prelim Diff (Auto) Neut % (Auto) Lymph % (Auto) [place] % (Auto) Eos % (Auto) Baso % (Auto) Neut # (Auto) Lymph # (Auto) [place] # (Auto) Eos # (Auto) Baso # (Auto) WBC Differential Diff Scan Differential Comment Platelet Estimate Platelet Morphology Sodium Potassium Chloride Carbon Dioxide Anion Gap BUN Creatinine Estimated GFR POC Glucose 259 H Random Glucose Calcium Phosphorus Magnesium Total Bilirubin AST ALT Alkaline Phosphatase Total Protein Albumin Triglycerides Cholesterol LDL Cholesterol, Calc HDL Cholesterol Cholesterol/HDL Ratio TSH Free T4 Medications: Active Medications Acetaminophen (Tylenol) 650 mg PO Q4H PRN PRN Reason: temp > 100.4 Last Admin: 08/21/17 01:45 Dose: 650 mg Alvimopan (Entereg) 12 mg PO BID [facility] Stop: 08/27/17 09:01 Last Admin: 08/21/17 09:18 Dose: 12 mg Amiodarone HCl (Cordarone) 100 mg PO MoWeFr@0900 [facility] Last Admin: 08/20/17 09:05 Dose: 100 mg Amiodarone HCl (Cordarone) 200 mg PO SuTuThSa@0900 [facility] Last Admin: 08/19/17 10:40 Dose: Not Given Atorvastatin Calcium (Lipitor) 40 mg PO HS [facility] Last Admin: 08/20/17 21:19 Dose: 40 mg Chlorhexidine Gluconate (Chlorhexidine 2% Cloth) 3 pack TOPICAL COMMUNITY LEADER [facility] Stop: 08/22/17 15:15 Last Admin: 08/19/17 15:00 Dose: 3 pack Clonidine HCl (Catapres) 0.1 mg PO Q6H PRN PRN Reason: HYPERTENSION Last Admin: 08/21/17 05:18 Dose: 0.1 mg Dextrose (D50w Vial) 50 ml IV.PUSH UNSCH PRN PRN Reason: PER HYPOGLYCEMIA PROTOCOL Enalaprilat (Vasotec Inj) 1.25 mg IV.PUSH Q4H PRN PRN Reason: SBP > 160 mmHg Furosemide (Lasix Inj) 20 mg IV.PUSH Q12H [facility] Last Admin: 08/21/17 09:18 Dose: 20 mg Glucagon (Glucagon Inj) 1 mg OTHER PRN PRN PRN Reason: for Hypoglycemia Protocol Heparin Sodium (Porcine) (Heparin Inj) 5,000 units SQ Q12H [facility] Last Admin: 08/21/17 09:17 Dose: 5,000 units Cefazolin Sodium 1,000 mg/ (Sodium Chloride) 100 mls @ 200 mls/hr IV.SIG [facility]UNITY LEADER [facility] Stop: 08/22/17 15:59 Last Infusion: 08/19/17 17:09 Dose: Infused Metronidazole/Sodium Chloride (Flagyl 500 Mg Inj) 100 mls @ 0 mls/hr IV.SIG COMMUNITY LEADER [facility] Stop: 08/23/17 15:59 Last Infusion: 08/20/17 14:10 Dose: Infused Sodium Chloride (Ns Inj) 500 mls @ 30 mls/hr IV.SIG .Q10H [facility] Stop: 08/22/17 15:15 Potassium Cl/Dextrose/Lact Ringer's (D5w/Lr + Kcl 20 Meq Inj) 1,000 mls @ 50 mls/hr IV.CONT .Q20H [facility]; Protocol Last Admin: 08/21/17 05:24 Dose: Not Given Potassium Chloride (Kcl 20 Meq Premix Inj) 20 meq in 100 mls @ 50 mls/hr IV.SIG UNSCH PRN PRN Reason: for K+ level 3.0-3.5 Potassium Chloride (Kcl 40 Meq Premix Inj) 40 meq in 100 mls @ 25 mls/hr IV.SIG UNSCH PRN PRN Reason: for K= level < 3.0 Potassium Phosphate 30 mmol/ (Sodium Chloride) 260 mls @ 43.333 mls/hr IV.SIG ONCE ONE Stop: 08/21/17 16:59 Insulin Human Regular (Novolin R Supplemental Scale) 0 units SQ ACHS AND 3AM [facility]; Protocol Last Admin: 08/21/17 09:18 Dose: 7 units Ketorolac Tromethamine (Toradol Inj) 15 mg IV.PUSH Q6H PRN PRN Reason: BREAKTHROUGH PAIN Stop: 08/22/17 18:03 Last Admin: 08/19/17 20:52 Dose: 15 mg Metoclopramide HCl (Reglan Inj) 10 mg IV.PUSH Q6HR [facility]; Protocol Last Admin: 08/21/17 05:18 Dose: 10 mg Metoprolol Succinate (Toprol Xl) 25 mg PO DAILY [facility] Last Admin: 08/21/17 09:18 Dose: 25 mg Metoprolol Tartrate (Lopressor) 25 mg PO [facility]ITY LEADER [facility] Stop: 08/22/17 15:15 Miscellaneous (Pill Splitter) 1 each OTHER UNSCH [facility] Naloxone HCl (Narcan Inj) 0.4 mg IV.PUSH PRN PRN PRN Reason: Resp rate < 10 Ondansetron HCl (Zofran Inj) 4 mg IV.PUSH Q6H PRN PRN Reason: NAUSEA OR VOMITING Oxycodone/Acetaminophen (Percocet 5/325 Mg) 1 tab PO Q4H PRN PRN Reason: PAIN SCALE 1 TO 5 Oxycodone/Acetaminophen (Percocet 5/325 Mg) 2 tab PO Q4H PRN PRN Reason: PAIN SCALE 6 TO 10 Last Admin: 08/20/17 13:33 Dose: 2 tab Pantoprazole Sodium (Protonix Inj) 40 mg IV.PUSH DAILY [facility] Last Admin: 08/21/17 09:19 Dose: 40 mg Potassium Phosphate (K-Phos Original) 500 mg PO BID [facility] Povidone Iodine (Betadine 5% Antisepsis Kit) 1 applicatio EACH NARE COMMUNITY LEADER [facility] Stop: 08/22/17 15:15 Sodium Chloride (Ns Flush) 2 ml IV.FLUSH BID [facility] Last Admin: 08/21/17 09:19 Dose: 2 ml Sodium Chloride (Ns Flush) 2 ml IV.FLUSH PRN PRN PRN Reason: FLUSH AFTER USING IV ACCESS Zolpidem Tartrate (Ambien) 5 mg PO HS PRN PRN Reason: INSOMNIA Objective Remarks: VS-S Abd: benign,dressing removed Assessment and Plan - Plan Transfer to my service. Medical service no longer needed. 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
[2017-08-21] MEDS ORDERED: Potassium Phosphate Inj 30 MMOL in Sodium Chlor 0.9% Inj 250 ML IV.SIG ONE (11:00)
[2017-08-21 11:44] LABS: Hemoglobin A1c 6.7 % (4.3-6.0)
[2017-08-21] MEDS: Amiodarone 200 MG Tablet PO SCH (12:31)
[2017-08-21] MEDS: Potassium Phosphate 500 MG Soluble Tablet PO SCH ×2 (12:32→21:03)
[2017-08-22] MEDS: Insulin NovoLIN Regular Correctional Sugar Inj SQ SCH ×5 (03:24→21:12)
[2017-08-22] MEDS: Pantoprazole Inj 40 MG Vial IV.PUSH SCH (08:26)
[2017-08-22] MEDS: Heparin - SQ 10,000 UNITS/ML Vial SQ SCH ×2 (08:26→21:19)
[2017-08-22] MEDS: Potassium Phosphate 500 MG Soluble Tablet PO SCH ×2 (08:27→21:14)
[2017-08-22] MEDS: Amiodarone 200 MG Tablet PO SCH (08:35)
--- NOTE | 2017-08-22 11:12 | P.PNCS ---
Subjective Interval history: No N or V. Loose BMs. Not ambulating in halls yet. Objective Vital Signs/Intake & Output: Vital Signs 08/21/17 12:00 08/21/17 16:00 08/21/17 20:00 Temperature 98.3 F 101.6 F H 99.1 F Pulse Rate 76 74 66 Respiratory Rate 16 16 20 Blood Pressure 130/60 138/65 135/60 Pulse Oximetry 91 L 92 L 97 08/22/17 00:00 08/22/17 08:00 Temperature 97.9 F 98.0 F Pulse Rate 61 67 Respiratory Rate 20 18 Blood Pressure 154/78 H 170/75 H Pulse Oximetry 95 96 Intake & Output 08/21/17 08/22/17 08/22/17 18:59 06:59 18:59 Intake Total 750 / 750 Output Total 900 / 900 Balance -150 / -150 Intake: Other 750 / 750 Output: Urine Amount (Catheter) 900 / 900 Indwelling Urethral Catheter 900 / 900 Other: Date of Last Bowel Movement 08/21/17 Result Diagrams: 08/21/17 05:11 08/21/17 05:11 Laboratory Results: Laboratory Results - last 24 hr 08/21/17 08/21/17 08/21/17 05:11 12:05 16:23 POC Glucose 222 H 188 H Hemoglobin A1c 6.7 H 08/21/17 08/22/17 08/22/17 20:58 03:18 08:18 POC Glucose 250 H 168 H 210 H Hemoglobin A1c Medications: Active Medications Acetaminophen (Tylenol) 650 mg PO Q4H PRN PRN Reason: temp > 100.4 Last Admin: 08/21/17 17:52 Dose: 650 mg Alvimopan (Entereg) 12 mg PO BID [facility] Stop: 08/27/17 09:01 Last Admin: 08/22/17 08:27 Dose: 12 mg Amiodarone HCl (Cordarone) 100 mg PO MoWeFr@0900 [facility] Last Admin: 08/20/17 09:05 Dose: 100 mg Amiodarone HCl (Cordarone) 200 mg PO SuTuThSa@0900 [facility] Last Admin: 08/22/17 08:35 Dose: 200 mg Atorvastatin Calcium (Lipitor) 40 mg PO HS [facility] Last Admin: 08/21/17 22:47 Dose: 40 mg Chlorhexidine Gluconate (Chlorhexidine 2% Cloth) 3 pack TOPICAL REVIEW SPECIALIST [facility] Stop: 08/22/17 15:15 Last Admin: 08/19/17 15:00 Dose: 3 pack Clonidine HCl (Catapres) 0.1 mg PO Q6H PRN PRN Reason: HYPERTENSION Last Admin: 08/21/17 05:18 Dose: 0.1 mg Dextrose (D50w Vial) 50 ml IV.PUSH UNSCH PRN PRN Reason: PER HYPOGLYCEMIA PROTOCOL Enalaprilat (Vasotec Inj) 1.25 mg IV.PUSH Q4H PRN PRN Reason: SBP > 160 mmHg Glucagon (Glucagon Inj) 1 mg OTHER PRN PRN PRN Reason: for Hypoglycemia Protocol Heparin Sodium (Porcine) (Heparin Inj) 5,000 units SQ Q12H [facility] Last Admin: 08/22/17 08:26 Dose: 5,000 units Sodium Chloride (Ns Inj) 500 mls @ 30 mls/hr IV.SIG .Q10H [facility] Stop: 08/22/17 15:15 Potassium Chloride (Kcl 20 Meq Premix Inj) 20 meq in 100 mls @ 50 mls/hr IV.SIG UNSCH PRN PRN Reason: for K+ level 3.0-3.5 Potassium Chloride (Kcl 40 Meq Premix Inj) 40 meq in 100 mls @ 25 mls/hr IV.SIG UNSCH PRN PRN Reason: for K= level < 3.0 Insulin Human Regular (Novolin R Supplemental Scale) 0 units SQ ACHS AND 3AM [facility]; Protocol Last Admin: 08/22/17 03:24 Dose: 2 units Ketorolac Tromethamine (Toradol Inj) 15 mg IV.PUSH Q6H PRN PRN Reason: BREAKTHROUGH PAIN Stop: 08/22/17 18:03 Last Admin: 08/19/17 20:52 Dose: 15 mg Metoclopramide HCl (Reglan Inj) 10 mg IV.PUSH Q6HR [facility]; Protocol Last Admin: 08/22/17 05:29 Dose: Not Given Metoprolol Succinate (Toprol Xl) 25 mg PO DAILY [facility] Last Admin: 08/22/17 08:27 Dose: 25 mg Metoprolol Tartrate (Lopressor) 25 mg PO REVIEW SPECIALIST [facility] Stop: 08/22/17 15:15 Miscellaneous (Pill Splitter) 1 each OTHER UNSCH [facility] Naloxone HCl (Narcan Inj) 0.4 mg IV.PUSH PRN PRN PRN Reason: Resp rate < 10 Ondansetron HCl (Zofran Inj) 4 mg IV.PUSH Q6H PRN PRN Reason: NAUSEA OR VOMITING Oxycodone/Acetaminophen (Percocet 5/325 Mg) 1 tab PO Q4H PRN PRN Reason: PAIN SCALE 1 TO 5 Last Admin: 08/22/17 08:29 Dose: 1 tab Oxycodone/Acetaminophen (Percocet 5/325 Mg) 2 tab PO Q4H PRN PRN Reason: PAIN SCALE 6 TO 10 Last Admin: 08/21/17 21:11 Dose: 2 tab Pantoprazole Sodium (Protonix Inj) 40 mg IV.PUSH DAILY [facility] Last Admin: 08/22/17 08:26 Dose: 40 mg Potassium Phosphate (K-Phos Original) 500 mg PO BID [facility] Last Admin: 08/22/17 08:27 Dose: 500 mg Povidone Iodine (Betadine 5% Antisepsis Kit) 1 applicatio EACH NARE REVIEW SPECIALIST [facility] Stop: 08/22/17 15:15 Sodium Chloride (Ns Flush) 2 ml IV.FLUSH BID [facility] Last Admin: 08/22/17 08:27 Dose: 2 ml Sodium Chloride (Ns Flush) 2 ml IV.FLUSH PRN PRN PRN Reason: FLUSH AFTER USING IV ACCESS Warfarin Sodium (Coumadin) 5 mg PO WE [facility] Warfarin Sodium (Coumadin) 2.5 mg PO DIRECTED [facility] Warfarin Sodium (Coumadin) 5 mg PO ONCE ONE Stop: 08/22/17 20:01 Zolpidem Tartrate (Ambien) 5 mg PO HS PRN PRN Reason: INSOMNIA Objective Remarks: VS-S Abd: soft,wound clean Assessment and Plan - Plan Transfer to my service. Medical service no longer needed. Coumadin restart this evening Hep Lock IV Restart PO Hypoglycemics in AM Probable D/C tomorrow
[2017-08-22 15:37] LABS: INR 1.2 Ratio; Prothrombin Time 11.9 sec (9.8-11.6)
[2017-08-23] MEDS: Insulin NovoLIN Regular Correctional Sugar Inj SQ SCH ×2 (04:13→09:38)
[2017-08-23 09:06] LABS: INR 1.1 Ratio; Prothrombin Time 11.5 sec (9.8-11.6)
[2017-08-23] MEDS: Potassium Phosphate 500 MG Soluble Tablet PO SCH (09:36)
[2017-08-23] MEDS: Pantoprazole Inj 40 MG Vial IV.PUSH SCH (09:36)
[2017-08-23] MEDS: Amiodarone 200 MG Tablet PO SCH (09:37)
[2017-08-23] MEDS: Heparin - SQ 10,000 UNITS/ML Vial SQ SCH (09:37)
--- NOTE | 2017-09-09 10:04 | MD ---
cc: Carlos Bassett MD,Grayson Lugo MD, MD, Vernu MD DATE OF DISCHARGE: 08/23/2017 ADMITTING DIAGNOSES: 1. Colon polyp of the cecum. 2. Vasovagal episode in reaction to colonic bowel prep. 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 OPERATIVE PROCEDURE: 08/19/2017 HISTORY OF PRESENT ILLNESS: This patient was known to me. He was scheduled for surgery on 08/19/2017 for an ascending colectomy for a partially removed, apparently benign polyp. The patient was admitted on 08/18/2017 through the emergency department with what appeared to be a vasovagal reaction. The patient began his prep and was starting to have bowel motions but also having severe abdominal cramps and he was pushing on the toilet and became lightheaded, called the emergency medical services and they transported him to the emergency department. In the emergency department, the patient had a full workup with multiple testing including CT angiogram of his whole aorta to rule out aortic dissection. He was also seen to have a lot of stool in the distal colon and fluid in his colon consistent with his bowel prep. A nasogastric tube was placed when the patient had some nausea and an episode of emesis. After all medical studies were done, the patient elected to continued to have his surgery on 08/19/2017, since he was medically cleared. LABORATORY DATA: The pathology report on the removed specimen revealed a benign cecal polyp. HOSPITAL COURSE: The patient was admitted to the hospital 08/18/2017 with a vasovagal episode during his bowel prep. His bowel prep was continued on the morning of the surgery and the patient underwent a colectomy on 08/19/2017. Postoperatively, he did well and on the first postoperative day, he was started on clear liquids. On the second postoperative day, he was begun on full liquids. On the third postoperative day, he was having bowel motions, no nausea, no vomiting, and his diet was increased to a regular diet. His Coumadin was restarted on the third postoperative day and he was discharged from the hospital on postoperative day #4, 08/23/2017. He was discharged in good condition, and he was instructed to followup with me in the office in 2 weeks' time. He was instructed to call me with any problems. He was instructed not to drive for 2 weeks' time and to do no heavy lifting over 10 pounds for 6 weeks. He was restarted on his oral hypoglycemics as well as his Coumadin prior to discharge. MD KANIKA Maciel/LAUREN , 09:35 AM , 09:43 AM
== END 2017-08-23 10:43 | disposition home or self-care (01) ==
LOC: NEPE 18:40 → NEDA 21:46 → INTOOBSV 22:53 → NEDH 08-19 03:03 → HPAC 08-19 15:00 → HCIS 08-19 23:34 → N07 08-21 02:05
PROVIDERS: ADMIT Colon & Rectal Surgery; ATTEND Colon & Rectal Surgery